=== PATIENT | female | born 1955 | race Caucasian/White ===

== ENCOUNTER 2020-05-28 09:32 | Outpatient (REF) | payer OTHER, SELFPAY ==
[2020-05-28 11:55] LABS: Alanine Aminotransferase 13 U/L (0-31); Albumin Level 4.5 g/dL (3.5-5.0); Alkaline Phosphatase 55 U/L (39-117); Anion Gap 13 (12-20); Aspartate Amino Transferase 12 U/L (5-31); Bilirubin Total 0.5 mg/dL (0.0-1.0); Blood Urea Nitrogen 12 mg/dL (9-16); Carbon Dioxide 26 mmol/L (22-29); Chloride 105 mmol/L (96-108); Cholesterol 185 mg/dL; Estimated Glomerular Filt Rate > 60; Glucose Fasting 135 mg/dL (60-99); HDL Cholesterol 48 mg/dL; LDL Cholesterol Calculated 105 mg/dl; Potassium 4.5 mmol/l (3.3-5.1); Sodium 139 mmol/L (135-145); Total Protein 7.2 g/dL (6.5-8.0); Triglycerides 160 mg/dL
[2020-05-28 12:03] LABS: Estimated Average Glucose 146 mg/dL; Hemoglobin A1c % 6.7 %
[2020-05-28 12:30] LABS: Creatinine Urine 91.64 mg/dL; Microalbum/Creatinine Ratio Ur 7.6 ug/mg cr
== END 2020-05-28 09:33 | disposition home or self-care (01) ==
LOC: HO.HMGCLDS 09:32
PROVIDERS: PCP Internal Medicine; Visit Provider Internal Medicine
DX: E78.5 Hyperlipidemia, unspecified (principal); I10 Essential (primary) hypertension
CPT/HCPCS: 80053; 80061; 82043; 83036

== ENCOUNTER 2020-12-14 08:09 | Outpatient (REF) | payer OTHER, SELFPAY ==
[2020-12-14 11:24] LABS: MANUAL DIFF FLAG NO
[2020-12-14 11:41] LABS: Basophils Absolute Auto 0.1 X10*3/uL (0.0-0.2); Basophils Percent Auto 1.2 % (0-2); Eosinophils Absolute Auto 0.1 X10*3/uL (0.0-0.4); Eosinophils Percent Auto 2.2 % (0-4); Hematocrit 39.4 % (37-47); Hemoglobin 12.8 g/dl (12.0-16.0); Imm Gran Abs Auto 0.01 X10*3/uL (0.00-0.03); Imm Gran Pct Auto 0.2 % (0.0-0.4); Lymphocytes Absolute Auto 1.8 X10*3/uL (1.2-4.9); Lymphocytes Percent Auto 36.1 % (20-40); Mean Corpuscular HGB Conc 32.5 g/dl (31.0-35.0); Mean Corpuscular Hemoglobin 28.8 pg (27.0-33.0); Mean Corpuscular Volume 88.5 fL (80-98); Mean Platelet Volume 11.4 fL (9.4-12.3); Monocytes Absolute Auto 0.4 X10*3/uL (0.1-1.2); Monocytes Percent Auto 7.8 % (2-11); Neutrophils Absolute Auto 2.6 X10*3/uL (2.0-8.3); Neutrophils Percent Auto 52.5 % (45-73); Platelet Count 293 X10*3/uL (160-400); Red Blood Count 4.45 X10*6/uL (4.20-5.50); Red Cell Distribution Width 12.5 % (11.0-16.0)
[2020-12-14 11:48] LABS: Alanine Aminotransferase 18 U/L (0-31); Albumin Level 4.5 g/dL (3.5-5.0); Alkaline Phosphatase 61 U/L (39-117); Anion Gap 16 (12-20); Aspartate Amino Transferase 13 U/L (5-31); Bilirubin Total 0.5 mg/dL (0.0-1.0); Blood Urea Nitrogen 16 mg/dL (9-16); Calcium 9.5 mg/dL (8.4-10.2); Carbon Dioxide 21 mmol/L (22-29); Chloride 105 mmol/L (96-108); Cholesterol 191 mg/dL; Estimated Glomerular Filt Rate > 60; Glucose Fasting 150 mg/dL (60-99); HDL Cholesterol 47 mg/dL; LDL Cholesterol Calculated 118 mg/dl; Potassium 4.3 mmol/L (3.3-5.1); Sodium 138 mmol/L (135-145); Total Protein 7.1 g/dL (6.5-8.0); Triglycerides 133 mg/dL
[2020-12-14 12:00] LABS: Creatinine Urine 76.06 mg/dL; Microalbumin Urine < 5.0 mg/L
[2020-12-14 12:00] LABS: Estimated Average Glucose 143 mg/dL; Hemoglobin A1c % 6.6 %
== END 2020-12-14 08:10 | disposition home or self-care (01) ==
LOC: HO.HMGCLDS 08:09
PROVIDERS: PCP Internal Medicine; Visit Provider Internal Medicine
DX: I10 Essential (primary) hypertension (principal); E11.9 Type 2 diabetes mellitus without complications; E78.5 Hyperlipidemia, unspecified; Z79.4 Long term (current) use of insulin
CPT/HCPCS: 36415; 80053; 80061; 82043; 83036; 85025

== ENCOUNTER 2021-03-22 09:05 | Outpatient (REF) | payer OTHER, SELFPAY ==
[2021-03-22 11:29] LABS: MANUAL DIFF FLAG NO
[2021-03-22 11:37] LABS: Basophils Percent Auto 0.6 % (0-2); Eosinophils Absolute Auto 0.1 X10*3/uL (0.0-0.4); Eosinophils Percent Auto 2.3 % (0-4); Hematocrit 37.3 % (37-47); Hemoglobin 12.1 g/dl (12.0-16.0); Imm Gran Abs Auto 0.03 X10*3/uL (0.00-0.03); Imm Gran Pct Auto 0.5 % (0.0-0.4); Lymphocytes Absolute Auto 1.9 X10*3/uL (1.2-4.9); Lymphocytes Percent Auto 30.1 % (20-40); Mean Corpuscular HGB Conc 32.4 g/dl (31.0-35.0); Mean Corpuscular Hemoglobin 28.8 pg (27.0-33.0); Mean Corpuscular Volume 88.8 fL (80-98); Monocytes Absolute Auto 0.5 X10*3/uL (0.1-1.2); Monocytes Percent Auto 7.2 % (2-11); Neutrophils Absolute Auto 3.7 X10*3/uL (2.0-8.3); Neutrophils Percent Auto 59.3 % (45-73); Platelet Count 245 X10*3/uL (160-400); Red Cell Distribution Width 12.7 % (11.0-16.0); White Blood Count 6.2 X10*3/uL (4.8-10.8)
[2021-03-22 11:45] LABS: Estimated Average Glucose 151 mg/dL; Hemoglobin A1c % 6.9 %
[2021-03-22 11:50] LABS: Creatinine Urine 99.61 mg/dL
[2021-03-22 11:51] LABS: Alanine Aminotransferase 28 U/L (0-31); Albumin Level 4.3 g/dL (3.5-5.0); Alkaline Phosphatase 67 U/L (39-117); Anion Gap 14 (12-20); Aspartate Amino Transferase 21 U/L (5-31); Bilirubin Total 0.4 mg/dL (0.0-1.0); Blood Urea Nitrogen 16 mg/dL (9-16); Calcium 9.2 mg/dL (8.4-10.2); Carbon Dioxide 24 mmol/L (22-29); Chloride 107 mmol/L (96-108); Cholesterol 198 mg/dL; Estimated Glomerular Filt Rate > 60; Glucose Fasting 167 mg/dL (60-99); HDL Cholesterol 50 mg/dL; LDL Cholesterol Calculated 119 mg/dl; Potassium 4.2 mmol/L (3.3-5.1); Sodium 141 mmol/L (135-145); Triglycerides 146 mg/dL
== END 2021-03-22 09:06 | disposition home or self-care (01) ==
LOC: HO.HMGCLDS 09:05
PROVIDERS: PCP Internal Medicine; Visit Provider Internal Medicine
DX: I10 Essential (primary) hypertension (principal); E78.5 Hyperlipidemia, unspecified
CPT/HCPCS: 36415; 80053; 80061; 82043; 83036; 85025

== ENCOUNTER 2021-06-15 12:55 | Outpatient (REF) | payer MEDICARE, SELFPAY ==
--- NOTE | ~2021-06-15 | XR_ITS ---
EXAMINATION: XR KNEE, BILATERAL CLINICAL INFORMATION: Knee pain. COMPARISON: Radiographs contralateral left knee 05/11/2017. TECHNIQUE: Each knee is imaged in standing AP and lateral views. There are 2 views of each side, a total of 4 views. FINDINGS: Right: Tricompartment osteoarthritis present, greatest medial knee joint compartment with joint narrowing and secondary genu varus. No erosive change or chondrocalcinosis. There is moderate suprapatellar effusion. Hoffa's fat pad appears normal. Bony mineralization is normal. No destructive process or periostitis. Left: Tricompartment osteoarthritis present, greatest medial knee joint compartment, similar to prior imaging 2017 with borderline secondary genu varus. There is no erosive change or chondrocalcinosis. Small suprapatellar effusion present. Hoffa's fat pad appears normal. Bony mineralization normal. No destructive process or periostitis. XR/XR knee standing BI IMPRESSION: 1. Bilateral tricompartment osteoarthritis, greatest medial compartments. 2. Moderate right effusion, small to moderate left effusion.
== END 2021-06-15 12:56 | disposition home or self-care (01) ==
LOC: HO.HMGCX 12:55
PROVIDERS: Visit Provider Internal Medicine
DX: M25.561 Pain in right knee (principal); M25.562 Pain in left knee
CPT/HCPCS: 73565

== ENCOUNTER 2021-08-02 09:24 | Outpatient (REF) | payer MEDICARE, SELFPAY ==
[2021-08-02 11:31] LABS: Estimated Average Glucose 143 mg/dL; Hemoglobin A1c % 6.6 %
[2021-08-02 11:42] LABS: Alanine Aminotransferase 17 U/L (0-31); Albumin Level 4.4 g/dL (3.5-5.0); Alkaline Phosphatase 69 U/L (39-117); Anion Gap 14 (12-20); Aspartate Amino Transferase 14 U/L (5-31); Bilirubin Total 0.4 mg/dL (0.0-1.0); Blood Urea Nitrogen 14 mg/dL (9-16); Calcium 9.7 mg/dL (8.4-10.2); Carbon Dioxide 28 mmol/L (22-29); Chloride 104 mmol/L (96-108); Cholesterol 207 mg/dL; Estimated Glomerular Filt Rate > 60; Glucose Fasting 154 mg/dL (60-99); HDL Cholesterol 50 mg/dL; LDL Cholesterol Calculated 137 mg/dl; Potassium 4.7 mmol/L (3.3-5.1); Sodium 141 mmol/L (135-145); Total Protein 7.3 g/dL (6.5-8.0); Triglycerides 100 mg/dL
== END 2021-08-02 09:25 | disposition home or self-care (01) ==
LOC: HO.HMGCLDS 09:24
PROVIDERS: Visit Provider Internal Medicine
DX: E78.5 Hyperlipidemia, unspecified (principal); I10 Essential (primary) hypertension; E11.9 Type 2 diabetes mellitus without complications; Z79.4 Long term (current) use of insulin
CPT/HCPCS: 36415; 80053; 80061; 83036

== ENCOUNTER 2021-12-20 08:52 | Outpatient (REF) | payer MEDICARE, SELFPAY | END 2021-12-20 08:53 | disposition home or self-care (01) | LOC: HO.HMGCLDS 08:52 | PROVIDERS: Absent Provider Orthopaedic Surgery; PCP Internal Medicine; Visit Provider Internal Medicine | DX: Z13.89 Encounter for screening for other disorder (principal) ==

== ENCOUNTER 2022-06-27 08:32 | Outpatient (REF) | payer OTHER, SELFPAY ==
[2022-06-27 11:12] LABS: MANUAL DIFF FLAG NO
[2022-06-27 11:20] LABS: Basophils Absolute Auto 0.1 X10*3/uL (0.0-0.2); Basophils Percent Auto 0.9 % (0-2); Eosinophils Absolute Auto 0.1 X10*3/uL (0.0-0.4); Eosinophils Percent Auto 2.6 % (0-4); Hemoglobin 12.8 g/dl (12.0-16.0); Imm Gran Abs Auto 0.01 X10*3/uL (0.00-0.03); Imm Gran Pct Auto 0.2 % (0.0-0.4); Mean Corpuscular HGB Conc 32.8 g/dl (31.0-35.0); Mean Corpuscular Hemoglobin 28.1 pg (27.0-33.0); Mean Corpuscular Volume 85.5 fL (80.0-98.0); Mean Platelet Volume 11.7 fL (9.4-12.3); Monocytes Absolute Auto 0.5 X10*3/uL (0.1-1.2); Monocytes Percent Auto 8.7 % (2-11); Neutrophils Absolute Auto 2.8 x10*3/uL (2.0-8.3); Neutrophils Percent Auto 51.6 % (45-73); Platelet Count 281 X10*3/uL (160-400); Red Blood Count 4.56 X10*6/uL (4.20-5.50); Red Cell Distribution Width 13.1 % (11.0-16.0); White Blood Count 5.4 X10*3/uL (4.8-10.8)
[2022-06-27 11:52] LABS: Alanine Aminotransferase 14 U/L (0-31); Albumin Level 4.3 g/dL (3.5-5.0); Alkaline Phosphatase 76 U/L (39-117); Anion Gap 13 (12-20); Aspartate Amino Transferase 12 U/L (5-31); Bilirubin Total 0.7 mg/dL (0.0-1.0); Blood Urea Nitrogen 22 mg/dL (9-16); Calcium 9.2 mg/dL (8.4-10.2); Carbon Dioxide 24 mmol/L (22-29); Chloride 106 mmol/L (96-108); Cholesterol 174 mg/dL; Estimated Glomerular Filt Rate > 60; Glucose Fasting 154 mg/dL (60-99); HDL Cholesterol 44 mg/dL; LDL Cholesterol Calculated 109 mg/dl; Potassium 3.5 mmol/L (3.3-5.1); Sodium 139 mmol/L (135-145); Triglycerides 107 mg/dL
[2022-06-27 11:56] LABS: Creatinine Urine 272.01 mg/dL; Microalbum/Creatinine Ratio Ur 7.3 ug/mg cr
[2022-06-27 11:59] LABS: Estimated Average Glucose 148 mg/dL; Hemoglobin A1c % 6.8 %
== END 2022-06-27 08:33 | disposition home or self-care (01) ==
LOC: HO.HMGCLDS 08:32
PROVIDERS: PCP Internal Medicine; Visit Provider Internal Medicine
DX: I10 Essential (primary) hypertension (principal); E78.5 Hyperlipidemia, unspecified
CPT/HCPCS: 36415; 80053; 80061; 82043; 83036; 85025

== ENCOUNTER 2023-01-23 09:02 | Outpatient (AMB) | payer OTHER, SELFPAY ==
--- NOTE | 2023-01-23 09:06 | MHC.PC.OV ---
Vital Signs 01/23/23 09:12 Height 5 ft Weight 183 lb BMI 35.7 BP 110/64 Blood Pressure Location Rt brachial Position Sitting Pulse 86 Pulse Source Pulse Oximeter Pulse Oximetry (%) 100 Oxygen Delivery Method Room Air Intake Visit Reasons: discharge from knee surgery Intake Note: Pt is here today for a Hospital follow up after R knee surgery. Allergies No Known Drug Allergies Allergy (Unknown, Verified 01/23/23 09:14) Unknown dust Allergy (Unknown, Uncoded 01/23/23 09:14) Unknown Medication List - Last Reconciled 01/23/23 by Shannon Goins MD blood sugar diagnostic As directed blood sugar diagnostic ([employer] Verio test strips) check glucose once a day blood-glucose meter ([employer] Verio Flex Start kit) 1 QD carvedilol 6.25 mg PO BID COVID-19 antigen test As directed dulaglutide 1.5 mg (0.5 mL) subcut QWEEK insulin glargine (Lantus Solostar U-100 Insulin) 40 units (0.4 mL) subcut DAILY irbesartan-hydrochlorothiazide 300-12.5 mg 1 tab PO DAILY lancets ([employer] UltraSoft Lancets) 1 qd lidocaine 5% 1 patch topical DAILY metformin 1,000 mg PO BID miscellaneous medical supply 1 ea miscellaneous .QD omeprazole 40 mg PO DAILY pen needle, diabetic bid pravastatin 20 mg PO DAILY Tobacco use date assessed: 01/23/23 Fall risk assessment: No Falls in past year Last assessed Fall Risk: 01/23/23 Dental Screening Dental Screen Date: 01/23/23 Did you have a dental visit in the last 12 months?: Yes Did you have a dental problem in the last 6 months where you did not have access to dental care?: No Was dental information given to patient?: Patient has dentist HPI discharge from knee surgery HPI Details Pt patient presents for the follow-up of R knee replacement surgery by Dr. Castaneda 3 weeks ago. Patient developed a rash around incision site and was diagnosed with allergic reaction to adhesive. The incision is healing well and was checked by a surgeon last week but patient complains of generalized itching and insomnia for the last 2 weeks. She denies any body rash. Type 2 diabetes hypertension hyperlipidemia are controlled on current medications. Patient lost 20 lb since started Trulicity. [facility] Medical History Abdominal pain Bilateral knee pain Chest pain Diabetic eye exam History of mammogram HTN (hypertension) Hyperlipidemia IDDM (insulin dependent diabetes mellitus) Lower back pain Obesity JACKLYN (obstructive sleep apnea) Surgical History H/O colonoscopy No pertinent past surgical history Family History Father No problems noted. Mother No problems noted. Social History Housing: House Alcohol intake: never Patient Tobacco Use Status: Never used Tobacco e-Cigarette/Vaping Use: Never Used Second Hand Smoke Exposure: No service: No Current occupational status: other Cognitive needs: No Hearing needs: No Vision needs: No Questionnaire PHQ-9 Over the last 2 weeks, how often have you been bothered by any of the following problems? 1. Little interest or pleasure in doing things: not at all 2. Feeling down, depressed, or hopeless: not at all 3. Trouble falling or staying asleep, or sleeping too much: not at all 4. Feeling tired or having little energy: not at all 5. Poor appetite or overeating: not at all 6. Feeling bad about yourself - or that you are a failure or have let yourself or your family down: not at all 7. Trouble concentrating on things, such as reading the newspaper or watching television: not at all 8. Moving or speaking so slowly that other people could have noticed. Or the opposite - being so fidgety or restless that you have been moving around a lot more than usual: not at all 9. Thoughts that you would be better off or of hurting yourself in some way: not at all Total score: 0 Depression Screening Interpretation: Negative Source: Developed by Drs. Giles Camara, Yesica Rocha, Leeroy Keith and colleagues, with an educational felicitas from [employer]. Thrive Questionnaire Date Thrive assessed: 01/23/23 I am a: Patient What is your living situation today?: I have a steady place to live Within the past 12 months, did the food you bought not last and you didn't have the money to get more?: Never true Within the past 12 months, did you worry whether your food would run out before you got money to buy more?: Never true Do you have trouble paying for medicines?: No Do you have trouble getting transportation to medical appointments?: No Do you have trouble paying your heating and electricity bill?: No Do you have trouble taking care of your child, family member or friend?: No Do you have trouble with day-to-day activities such as bathing, preparing meals, shopping, managing finances, etc.?: No Are you currently unemployed and looking for a job?: No Are you interested in more education?: No Please select the resources that you would like help with: None Currently or been in a relationship where the following occur: no concerns reported AUDIT C Alcohol Use Questionnaire (AUDIT-C) 1. How often do you have a drink containing alcohol?: Never 3. How often do you have six or more drinks on one occasion?: Never Total Score: 0 APARNA-7 AMB Questionnaire APARNA-7 Date APARNA - 7 assessed: 01/23/23 Feeling nervous, anxious, or on edge: 0 = Not at all Not being able to stop or control worryin = Not at all Worrying too much about different things: 0 = Not at all Trouble relaxin = Not at all Being so restless that it is hard to sit still: 0 = Not at all Becoming easily annoyed or irritable: 0 = Not at all Feeling afraid as if something awful might happen: 0 = Not at all Total APARNA-7 score (0-4 normal; 5-9 mild; 10-14 moderate; 15-21 severe): 0 Source: Developed by Drs. Giles Camara, Yesica Rocha, Leeroy Keith and colleagues, with an educational felicitas from [employer]. Review of Systems Const All systems reviewed & are unremarkable except as noted in HPI and below Reports no additional complaints Eyes Reports no additional complaints ENT Reports no additional complaints Card Reports no additional complaints Resp Reports no additional complaints GI Reports no additional complaints Physical exam (Primary Care) Vital Signs: Last Vital Signs Pulse 86 01/23/23 09:12 BP 110/64 01/23/23 09:12 Pulse Ox 100 01/23/23 09:12 Oxygen Delivery Method Room Air 01/23/23 09:12 BMI result Body Mass Index 35.7 Tobacco/Smoking Status: Tobacco use Status Tobacco use date assessed 01/23/23 01/23/23 09:21 Patient Tobacco Use Status Never used Tobacco 01/23/23 09:21 e-Cigarette/Vaping Use Never Used 01/23/23 09:06 PHQ-9: PHQ-9 Score PHQ-9: Total score 0 01/23/23 09:21 Depression Screening Interpretation: Negative Thrive Assessment: Date of Thrive Assessment Date Thrive assessed 01/23/23 01/23/23 09:21 Currently or been in a relationship where the following occur: no concerns reported Const General: no acute distress HENMT Head: Yes normal to inspection Ears: hearing grossly normal bilaterally Throat: Yes posterior oropharynx normal Neck Neck: Yes supple Resp Effort & Inspection: normal respiratory effort Auscultation: clear to auscultation bilaterally Cardio Rhythm: regular rhythm Heart sounds: S1 normal heart sound present and S2 normal heart sound present GI Inspection: Yes normal to inspection Palpation (GI): Soft to palpation Skin General skin exam: no rashes or lesions noted Extrem Other: Right knee incision site with dry scab no erythema warmth or tenderness, Assessment and Plan Assessment & Plan (1) HTN (hypertension): Comment: BP goal <130/80 Code(s): I10 - Essential (primary) hypertension Plan: Continue medications (2) IDDM (insulin dependent diabetes mellitus): Comment: A1C < 8 Plan: Continue medications (3) Hyperlipidemia: Code(s): E78.5 - Hyperlipidemia, unspecified Plan: Continue statin (4) Allergic reaction: Comment: to adhesive Code(s): T78.40XA - Allergy, unspecified, initial encounter Plan: Hydroxyzine 10-20 mg q.h.s. for 1 week is prescribed Orders: Orders Comprehensive Met. Panel Today E78.5 - Hyperlipidemia, unspecified, I10 - Essential (primary) hypertension Hemoglobin A1c Today E78.5 - Hyperlipidemia, unspecified, I10 - Essential (primary) hypertension Complete Blood Count Auto Diff Today E78.5 - Hyperlipidemia, unspecified, I10 - Essential (primary) hypertension Medications: New blood sugar diagnostic ([employer] Verio test strips) check glucose twice a day 200 ea 3RF hydroxyzine HCl 10 -20 mg orally bedtime; 60 tabs 0RF hydroxyzine HCl 10 -20 mg orally bedtime; 60 tabs 0RF omeprazole 40 mg (2 x 20 mg) PO DAILY 180 caps 1RF blood sugar diagnostic ([employer] Verio test strips) check glucose twice a day 200 ea 3RF Coding Level of Care Code Est Pt Level 4 (98180) Diagnoses HTN (hypertension) I10 IDDM (insulin dependent diabetes mellitus) Hyperlipidemia E78.5 Allergic reaction T78.40XA
[2023-01-23 09:12] VITALS: BP 110/64; PULSE 86; O2SAT 100; BMI 35.7
== END 2023-01-23 10:42 | disposition home or self-care (01) ==
PROVIDERS: PCP Internal Medicine; Visit Provider Internal Medicine
DX: I10 Essential (primary) hypertension (principal); E78.5 Hyperlipidemia, unspecified; T78.40XA Allergy, unspecified, initial encounter
CPT/HCPCS: 99214

== ENCOUNTER 2023-01-23 09:58 | Outpatient (REF) | payer OTHER, SELFPAY ==
[2023-01-23 13:17] LABS: MANUAL DIFF FLAG NO
[2023-01-23 13:36] LABS: Basophils Absolute Auto 0.1 X10*3/uL (0.0-0.2); Basophils Percent Auto 1.5 % (0-2); Eosinophils Absolute Auto 0.5 X10*3/uL (0.0-0.4); Eosinophils Percent Auto 9.1 % (0-4); Hematocrit 40.9 % (37.0-47.0); Imm Gran Abs Auto 0.01 X10*3/uL (0.00-0.03); Imm Gran Pct Auto 0.2 % (0.0-0.4); Lymphocytes Absolute Auto 1.8 X10*3/uL (1.2-4.9); Lymphocytes Percent Auto 34.1 % (20-40); Mean Corpuscular HGB Conc 31.8 g/dl (31.0-35.0); Mean Corpuscular Hemoglobin 28.1 pg (27.0-33.0); Mean Corpuscular Volume 88.5 fL (80.0-98.0); Mean Platelet Volume 11.1 fL (9.4-12.3); Monocytes Absolute Auto 0.4 X10*3/uL (0.1-1.2); Monocytes Percent Auto 7.5 % (2-11); Neutrophils Absolute Auto 2.5 x10*3/uL (2.0-8.3); Neutrophils Percent Auto 47.6 % (45-73); Platelet Count 402 X10*3/uL (160-400); Red Blood Count 4.62 X10*6/uL (4.20-5.50); Red Cell Distribution Width 13.2 % (11.0-16.0); White Blood Count 5.2 X10*3/uL (4.8-10.8)
[2023-01-23 14:01] LABS: Alanine Aminotransferase 12 U/L (0-31); Albumin Level 4.4 g/dL (3.5-5.0); Alkaline Phosphatase 101 U/L (39-117); Anion Gap 17 (12-20); Aspartate Amino Transferase 16 U/L (5-31); Bilirubin Total 0.6 mg/dL (0.0-1.0); Blood Urea Nitrogen 8 mg/dL (9-16); Calcium 9.9 mg/dL (8.4-10.2); Carbon Dioxide 22 mmol/L (22-29); Chloride 102 mmol/L (96-108); Estimated Glomerular Filt Rate > 60; Glucose Random 132 mg/dL (60-115); Potassium 3.8 mmol/L (3.3-5.1); Sodium 137 mmol/L (135-145); Total Protein 7.8 g/dL (6.5-8.0)
[2023-01-23 14:07] LABS: Estimated Average Glucose 120 mg/dL; Hemoglobin A1c % 5.8 %
== END 2023-01-23 09:59 | disposition home or self-care (01) ==
LOC: HO.HMGCLDS 09:58
PROVIDERS: PCP Internal Medicine; Visit Provider Internal Medicine
DX: I10 Essential (primary) hypertension (principal); E78.5 Hyperlipidemia, unspecified; E11.9 Type 2 diabetes mellitus without complications; Z79.4 Long term (current) use of insulin
CPT/HCPCS: 36415; 80053; 83036; 85025

== ENCOUNTER 2023-03-28 08:53 | Outpatient (REF) | payer MEDICARE, SELFPAY ==
[2023-03-28 11:24] LABS: MANUAL DIFF FLAG NO
[2023-03-28 11:27] LABS: Basophils Absolute Auto 0.1 X10*3/uL (0.0-0.2); Basophils Percent Auto 0.9 % (0-2); Eosinophils Absolute Auto 0.2 X10*3/uL (0.0-0.4); Hematocrit 39.9 % (37.0-47.0); Imm Gran Abs Auto 0.01 X10*3/uL (0.00-0.03); Imm Gran Pct Auto 0.2 % (0.0-0.4); Lymphocytes Absolute Auto 1.5 X10*3/uL (1.2-4.9); Lymphocytes Percent Auto 27.6 % (20-40); Mean Corpuscular HGB Conc 32.6 g/dl (31.0-35.0); Mean Corpuscular Hemoglobin 28.3 pg (27.0-33.0); Mean Corpuscular Volume 86.9 fL (80.0-98.0); Mean Platelet Volume 11.1 fL (9.4-12.3); Monocytes Absolute Auto 0.4 X10*3/uL (0.1-1.2); Monocytes Percent Auto 7.9 % (2-11); Neutrophils Absolute Auto 3.2 x10*3/uL (2.0-8.3); Neutrophils Percent Auto 60.4 % (45-73); Platelet Count 288 X10*3/uL (160-400); Red Blood Count 4.59 X10*6/uL (4.20-5.50); Red Cell Distribution Width 13.2 % (11.0-16.0); White Blood Count 5.3 X10*3/uL (4.8-10.8)
[2023-03-28 11:49] LABS: Creatinine Urine 156.41 mg/dL; Microalbum/Creatinine Ratio Ur 5.1 ug/mg cr (<30)
[2023-03-28 11:53] LABS: Alanine Aminotransferase 9 U/L (0-31); Albumin Level 4.3 g/dL (3.5-5.0); Alkaline Phosphatase 69 U/L (39-117); Anion Gap 14 (12-20); Aspartate Amino Transferase 13 U/L (5-31); Bilirubin Total 0.4 mg/dL (0.0-1.0); Blood Urea Nitrogen 13 mg/dL (9-16); Calcium 10.1 mg/dL (8.4-10.2); Carbon Dioxide 27 mmol/L (22-29); Chloride 104 mmol/L (96-108); Cholesterol 196 mg/dL (<200); Estimated Glomerular Filt Rate > 60; Glucose Fasting 125 mg/dL (60-99); HDL Cholesterol 47 mg/dL (>40); LDL Cholesterol Calculated 124 mg/dL (<100); Potassium 4.2 mmol/L (3.3-5.1); Sodium 141 mmol/L (135-145); Total Protein 7.5 g/dL (6.5-8.0); Triglycerides 126 mg/dL (<150)
[2023-03-28 11:56] LABS: Estimated Average Glucose 131 mg/dL; Hemoglobin A1c % 6.2 % (<6.0)
== END 2023-03-28 08:54 | disposition home or self-care (01) ==
LOC: HO.HMGCLDS 08:53
PROVIDERS: PCP Internal Medicine; Visit Provider Internal Medicine
DX: I10 Essential (primary) hypertension (principal); E78.5 Hyperlipidemia, unspecified
CPT/HCPCS: 36415; 80053; 80061; 82043; 82570; 83036; 85025

== ENCOUNTER 2023-04-03 11:52 | Outpatient (AMB) | payer OTHER, SELFPAY ==
--- NOTE | 2023-04-03 11:55 | MHC.PC.OV ---
Vital Signs 04/03/23 11:56 Height 5 ft Weight 184 lb BMI 35.9 BP 112/64 Blood Pressure Location Rt brachial Position Sitting Pulse 75 Pulse Source Pulse Oximeter Pulse Oximetry (%) 97 Oxygen Delivery Method Room Air Intake Visit Reasons: Annual Physical Intake Note: Pt is here today for PE. Allergies No Known Drug Allergies Allergy (Unknown, Verified 04/03/23 12:00) Unknown dust Allergy (Unknown, Uncoded 04/03/23 12:00) Unknown Medication List - Last Reconciled 04/03/23 by Shannon Goins MD blood sugar diagnostic As directed blood sugar diagnostic ([employer] Verio test strips) check glucose twice a day blood-glucose meter ([employer] Verio Flex Start kit) 1 QD carvedilol 6.25 mg PO BID COVID-19 antigen test As directed dulaglutide 1.5 mg (0.5 mL) subcut QWEEK hydroxyzine HCl 10 -20 mg orally bedtime; insulin glargine (Lantus Solostar U-100 Insulin) 40 units (0.4 mL) subcut DAILY irbesartan-hydrochlorothiazide 300-12.5 mg 1 tab PO DAILY lancets ([employer] UltraSoft Lancets) 1 qd lidocaine 5% 1 patch topical DAILY metformin 1,000 mg PO BID miscellaneous medical supply 1 ea miscellaneous .QD omeprazole 40 mg PO BID pen needle, diabetic bid pravastatin 20 mg PO DAILY pravastatin 20 mg PO DAILY Tobacco use date assessed: 01/23/23 Fall risk assessment: No Falls in past year Last assessed Fall Risk: 04/03/23 Dental Screening Dental Screen Date: 04/03/23 Did you have a dental visit in the last 12 months?: Yes Did you have a dental problem in the last 6 months where you did not have access to dental care?: No Was dental information given to patient?: Patient has dentist HPI Annual Physical HPI Details Pt presents for PE. Pt c/o insomnia, but denies depression or anxiety. Patient complains of persistent heartburn despite taking 40 mg of omeprazole. She would like to see medicaid business analyst to have repeat endoscopy for history of chronic esophagitis. Patient denies dysphagia odynophagia hematochezia melena. [facility] Medical History Bilateral knee pain Lower back pain Abdominal pain Chest pain Hyperlipidemia History of mammogram Diabetic eye exam JACKLYN (obstructive sleep apnea) Obesity HTN (hypertension) IDDM (insulin dependent diabetes mellitus) Surgical History H/O colonoscopy No pertinent past surgical history Family History Father No problems noted. Mother No problems noted. Social History Housing: House Alcohol intake: never Patient Tobacco Use Status: Never used Tobacco e-Cigarette/Vaping Use: Never Used Second Hand Smoke Exposure: No service: No Current occupational status: other Cognitive needs: No Hearing needs: No Vision needs: No Questionnaire Thrive Questionnaire Date Thrive assessed: 01/23/23 APARNA-7 AMB Questionnaire APARNA-7 Date APARNA - 7 assessed: 01/23/23 Source: Developed by Drs. Giles Camara, Yesica Rocha, Leeroy Keith and colleagues, with an educational felicitas from [employer]. Review of Systems Const All systems reviewed & are unremarkable except as noted in HPI and below Reports no additional complaints Eyes Reports no additional complaints ENT Reports no additional complaints Card Reports no additional complaints Resp Reports no additional complaints GI Reports no additional complaints Reports no additional complaints Physical exam (Primary Care) Vital Signs: Last Vital Signs Pulse 75 04/03/23 11:56 BP 112/64 04/03/23 11:56 Pulse Ox 97 04/03/23 11:56 Oxygen Delivery Method Room Air 04/03/23 11:56 BMI result Body Mass Index 35.9 Tobacco/Smoking Status: Tobacco use Status Tobacco use date assessed 01/23/23 04/03/23 11:56 Patient Tobacco Use Status Never used Tobacco 04/03/23 11:56 e-Cigarette/Vaping Use Never Used 04/03/23 11:56 Thrive Assessment: Date of Thrive Assessment Date Thrive assessed 01/23/23 04/03/23 11:56 Const General: no acute distress Nutritional Appearance: average body habitus HENMT Head: Yes normal to inspection Ears: hearing grossly normal bilaterally General nose exam: Normal external nose present Face and sinus: Yes normal facial exam Throat: Yes posterior oropharynx normal Eyes General: appearance normal, both eyes and all related structures Resp Effort & Inspection: normal respiratory effort Auscultation: clear to auscultation bilaterally Cardio Rhythm: regular rhythm Heart sounds: S1 normal heart sound present and S2 normal heart sound present GI Inspection: Yes normal to inspection Palpation (GI): Soft to palpation Percussion: Yes normal to percussion Auscultation: normal bowel sounds Extrem General: Yes no clubbing, cyanosis or edema Assessment and Plan Assessment & Plan (1) GERD (gastroesophageal reflux disease): Code(s): K21.9 - Gastro-esophageal reflux disease without esophagitis Plan: Increase omeprazole to 40 mg twice a day and patient will be referred to medicaid business analyst Dr. Avelar for evaluation (2) IDDM (insulin dependent diabetes mellitus): Comment: A1C < 8 Plan: A1c is 6.4, continue current medications ADA diet regular exercise (3) HTN (hypertension): Comment: BP goal <130/80 Code(s): I10 - Essential (primary) hypertension Plan: Continue current medications (4) Hyperlipidemia: Code(s): E78.5 - Hyperlipidemia, unspecified Plan: Restart pravastatin. Follow-up in 6 months with a fasting labs before (5) History of total knee arthroplasty: Comment: Left 01/17, right 2022 Code(s): Z96.659 - Presence of unspecified artificial knee joint (6) Annual physical exam: Code(s): Z00.00 - Encounter for general adult medical examination without abnormal findings Plan: Well-balanced diet regular exercise discussed with the patient. She is up-to-date with mammogram colonoscopy and diabetic eye exam. Patient will return in 6 months Orders: Orders Comprehensive [place]. Panel Fast 6 Months E78.5 - Hyperlipidemia, unspecified, I10 - Essential (primary) hypertension, K21.9 - Gastro-esophageal reflux disease without esophagitis Complete Blood Count Auto Diff 6 Months E78.5 - Hyperlipidemia, unspecified, I10 - Essential (primary) hypertension, K21.9 - Gastro-esophageal reflux disease without esophagitis Lipid Panel 6 Months E78.5 - Hyperlipidemia, unspecified, I10 - Essential (primary) hypertension, K21.9 - Gastro-esophageal reflux disease without esophagitis Microalbumin, Random (w Creat) 6 Months E78.5 - Hyperlipidemia, unspecified, I10 - Essential (primary) hypertension, K21.9 - Gastro-esophageal reflux disease without esophagitis Hemoglobin A1c 6 Months E78.5 - Hyperlipidemia, unspecified, I10 - Essential (primary) hypertension, K21.9 - Gastro-esophageal reflux disease without esophagitis Referrals Gastroenterology Referral K21.9 - Gastro-esophageal reflux disease without esophagitis Medications: New pravastatin 20 mg PO DAILY 90 tabs 1RF omeprazole 40 mg PO BID 180 caps 1RF Discontinued pravastatin Discontinued Reason: Doctor's Order 20 mg PO DAILY 90 tabs 3RF omeprazole Discontinued Reason: Doctor's Order 40 mg (2 x 20 mg) PO DAILY 180 caps 1RF Coding Level of Care Code Est Pt Prev Care >65y(95566) Diagnoses GERD (gastroesophageal reflux disease) K21.9 IDDM (insulin dependent diabetes mellitus) HTN (hypertension) I10 Hyperlipidemia E78.5 History of total knee arthroplasty Z96.659 Annual physical exam Z00.00
[2023-04-03 11:56] VITALS: BP 112/64; PULSE 75; O2SAT 97; BMI 35.9
== END 2023-04-03 13:02 | disposition home or self-care (01) ==
PROVIDERS: PCP Internal Medicine; Visit Provider Internal Medicine
DX: K21.9 Gastro-esophageal reflux disease without esophagitis (principal); I10 Essential (primary) hypertension; E78.5 Hyperlipidemia, unspecified; Z96.659 Presence of unspecified artificial knee joint; Z00.00 Encounter for general adult medical examination without abnormal findings
CPT/HCPCS: 99397

== ENCOUNTER 2023-10-17 08:05 | Outpatient (REF) | payer MEDICARE, SELFPAY ==
[2023-10-17 11:57] LABS: MANUAL DIFF FLAG NO
[2023-10-17 12:01] LABS: Basophils Absolute Auto 0.1 X10*3/uL (0.0-0.2); Basophils Percent Auto 1.1 % (0-2); Eosinophils Absolute Auto 0.1 X10*3/uL (0.0-0.4); Eosinophils Percent Auto 2.5 % (0-4); Hematocrit 38.4 % (37.0-47.0); Hemoglobin 12.3 g/dl (12.0-16.0); Imm Gran Abs Auto 0.01 X10*3/uL (0.00-0.03); Imm Gran Pct Auto 0.2 % (0.0-0.4); Lymphocytes Absolute Auto 1.9 X10*3/uL (1.2-4.9); Lymphocytes Percent Auto 34.9 % (20-40); Mean Corpuscular Hemoglobin 27.8 pg (27.0-33.0); Mean Corpuscular Volume 86.7 fL (80.0-98.0); Monocytes Absolute Auto 0.4 X10*3/uL (0.1-1.2); Monocytes Percent Auto 7.4 % (2-11); Neutrophils Percent Auto 53.9 % (45-73); Platelet Count 259 X10*3/uL (160-400); Red Blood Count 4.43 X10*6/uL (4.20-5.50); Red Cell Distribution Width 12.6 % (11.0-16.0); White Blood Count 5.6 X10*3/uL (4.8-10.8)
[2023-10-17 12:10] LABS: Estimated Average Glucose 163 mg/dL; Hemoglobin A1c % 7.3 % (<6.0)
[2023-10-17 12:15] LABS: Alanine Aminotransferase 14 U/L (0-31); Albumin Level 4.2 g/dL (3.5-5.0); Alkaline Phosphatase 73 U/L (39-117); Anion Gap 11 (12-20); Aspartate Amino Transferase 16 U/L (5-31); Bilirubin Total 0.5 mg/dL (0.0-1.0); Blood Urea Nitrogen 15 mg/dL (9-16); Calcium 9.9 mg/dL (8.4-10.2); Carbon Dioxide 25 mmol/L (22-29); Chloride 108 mmol/L (96-108); Cholesterol 163 mg/dL (<200); Estimated Glomerular Filt Rate > 60; Glucose Fasting 133 mg/dL (60-99); HDL Cholesterol 50 mg/dL (>40); LDL Cholesterol Calculated 96 mg/dL (<100); Potassium 4.1 mmol/L (3.3-5.1); Sodium 140 mmol/L (135-145); Total Protein 7.3 g/dL (6.5-8.0); Triglycerides 89 mg/dL (<150)
[2023-10-17 12:57] LABS: Creatinine Urine 76.32 mg/dL; Microalbumin Urine < 5.0 mg/L
== END 2023-10-17 08:06 | disposition home or self-care (01) ==
LOC: HO.HMGCLDS 08:05
PROVIDERS: PCP Internal Medicine; Visit Provider Internal Medicine
DX: I10 Essential (primary) hypertension (principal); E78.5 Hyperlipidemia, unspecified; K21.9 Gastro-esophageal reflux disease without esophagitis
CPT/HCPCS: 36415; 80053; 80061; 82570; 83036; 85025

== ENCOUNTER 2023-10-19 11:38 | Outpatient (AMB) | payer MEDICARE, SELFPAY ==
[2023-10-19 12:36] VITALS: BP 126/60; PULSE 81; O2SAT 96; BMI 38.9
--- NOTE | 2023-10-19 12:36 | MHC.PC.OV ---
Vital Signs 10/19/23 12:36 Height 5 ft Weight 199 lb BMI 38.9 BP 126/60 Blood Pressure Location Rt brachial Position Sitting Pulse 81 Pulse Source Pulse Oximeter Pulse Oximetry (%) 96 Oxygen Delivery Method Room Air Intake Visit Reasons: 6 month follow up DM Allergies No Known Drug Allergies Allergy (Unknown, Verified 10/19/23 12:40) Unknown dust Allergy (Unknown, Uncoded 04/03/23 12:00) Unknown Medication List - Last Reconciled 10/19/23 by Shannon Goins MD blood sugar diagnostic As directed blood sugar diagnostic ([employer] Verio test strips) check glucose twice a day blood-glucose meter ([employer] Verio Flex Start kit) 1 QD carvedilol 6.25 mg PO BID COVID-19 antigen test As directed COVID-19 antigen test ([employer] COVID-19 Ag Card Home Test kit) As directed dulaglutide 1.5 mg (0.5 mL) subcut QWEEK hydroxyzine HCl 10 -20 mg orally bedtime; insulin glargine (Lantus Solostar U-100 Insulin) 40 units (0.4 mL) subcut DAILY irbesartan-hydrochlorothiazide 300-12.5 mg 1 tab PO DAILY lancets ([employer] UltraSoft Lancets) 1 qd metformin 1,000 mg PO BID miscellaneous medical supply 1 ea miscellaneous .QD omeprazole 40 mg PO BID pen needle, diabetic bid pravastatin 20 mg PO DAILY Trulicity (dulaglutide) 0.75 mg (0.5 mL) subcut QWEEK NS Tobacco use date assessed: 10/19/23 Fall risk assessment: No Falls in past year Last assessed Fall Risk: 10/19/23 Dental Screening Dental Screen Date: 10/19/23 Did you have a dental visit in the last 12 months?: Yes Did you have a dental problem in the last 6 months where you did not have access to dental care?: No Was dental information given to patient?: Patient has dentist HPI 6 month follow up DM HPI Details Patient presents for the follow-up on hypertension hyperlipidemia type 2 diabetes. She has not been taking Trulicity regularly because of the shortage of the pharmacy. Patient gained 15 lbs since last visit and has not been exercising regularly. [facility] Medical History Bilateral knee pain Lower back pain Abdominal pain Chest pain Hyperlipidemia History of mammogram Diabetic eye exam JACKLYN (obstructive sleep apnea) Obesity HTN (hypertension) IDDM (insulin dependent diabetes mellitus) Surgical History H/O colonoscopy No pertinent past surgical history Family History Father No problems noted. Mother No problems noted. Social History Housing: House Alcohol intake: never Patient Tobacco Use Status: Never used Tobacco e-Cigarette/Vaping Use: Never Used Second Hand Smoke Exposure: No service: No Current occupational status: other Cognitive needs: No Hearing needs: No Vision needs: No Questionnaire Thrive Questionnaire Date Thrive assessed: 01/23/23 AUDIT C Alcohol Use Questionnaire (AUDIT-C) 1. How often do you have a drink containing alcohol?: Never 3. How often do you have six or more drinks on one occasion?: Never Total Score: 0 Score Reviewed/Action Taken: Yes APARNA-7 AMB Questionnaire APARNA-7 Date APARNA - 7 assessed: 01/23/23 Source: Developed by Drs. Giles Camara, Yesica Rocha, Leeroy Keith and colleagues, with an educational felicitas from [employer]. Review of Systems Const All systems reviewed & are unremarkable except as noted in HPI and below Eyes Reports no additional complaints ENT Reports no additional complaints Card Reports no additional complaints Resp Reports no additional complaints GI Reports no additional complaints Reports no additional complaints Physical exam (Primary Care) Vital Signs: Last Vital Signs Pulse 81 10/19/23 12:36 BP 126/60 10/19/23 12:36 Pulse Ox 96 10/19/23 12:36 Oxygen Delivery Method Room Air 10/19/23 12:36 BMI result Body Mass Index 38.9 Tobacco/Smoking Status: Tobacco use Status Tobacco use date assessed 10/19/23 10/19/23 12:41 Patient Tobacco Use Status Never used Tobacco 10/19/23 12:41 e-Cigarette/Vaping Use Never Used 10/19/23 12:41 Thrive Assessment: Date of Thrive Assessment Date Thrive assessed 01/23/23 10/19/23 12:41 Const General: no acute distress HENMT Head: Yes normal to inspection Ears: hearing grossly normal bilaterally Face and sinus: Yes normal facial exam Mouth: Normal oral and palatal mucosa present Throat: Yes posterior oropharynx normal Neck Neck: Yes supple Resp Effort & Inspection: normal respiratory effort Auscultation: clear to auscultation bilaterally Cardio Rhythm: regular rhythm Heart sounds: S1 normal heart sound present and S2 normal heart sound present GI Inspection: Yes normal to inspection Palpation (GI): Soft to palpation Percussion: Yes normal to percussion Auscultation: normal bowel sounds Assessment and Plan Assessment & Plan (1) HTN (hypertension): Comment: BP goal <130/80 Code(s): I10 - Essential (primary) hypertension Plan: cont current meds (2) IDDM (insulin dependent diabetes mellitus): Comment: A1C < 8 Plan: A1c is 7.3, ADA diet increase exercise weight loss discussed with the patient. She will continue Trulicity 1.5 mg weekly for 1 month to use her supply and then changed to Mounjaro 5 mg weekly. Follow-up in 3 months with a fasting labs before. Patient will start monitoring her glucose with Dexcom7 for insulin-dependent diabetes and to improve glycemic control (3) Hyperlipidemia: Code(s): E78.5 - Hyperlipidemia, unspecified Plan: Continue pravastatin Orders: Orders Hemoglobin A1c 3 Months E78.5 - Hyperlipidemia, unspecified, I10 - Essential (primary) hypertension Comprehensive [place]. Panel Fast 3 Months E78.5 - Hyperlipidemia, unspecified, I10 - Essential (primary) hypertension Lipid Panel 3 Months E78.5 - Hyperlipidemia, unspecified, I10 - Essential (primary) hypertension Microalbumin, Random (w Creat) 3 Months E78.5 - Hyperlipidemia, unspecified, I10 - Essential (primary) hypertension Medications: New blood-glucose sensor (Dexcom G7 Sensor device) As directed 1 ea 0RF tirzepatide (Mounjaro) 5 mg (0.5 mL) subcut QWEEK 6 mL 0RF Discontinued Trulicity (dulaglutide) Discontinued Reason: Doctor's Order 0.75 mg (0.5 mL) subcut QWEEK 6 mL 0RF NS Coding Level of Care Code Est Pt Level 4 (04258) Diagnoses HTN (hypertension) I10 IDDM (insulin dependent diabetes mellitus) Hyperlipidemia E78.5
== END 2023-10-19 13:29 | disposition home or self-care (01) ==
LOC: HO.HMGC 11:38
PROVIDERS: PCP Internal Medicine; Visit Provider Internal Medicine
DX: I10 Essential (primary) hypertension (principal); E78.5 Hyperlipidemia, unspecified; E11.69 Type 2 diabetes mellitus with other specified complication; Z79.4 Long term (current) use of insulin
CPT/HCPCS: 99214

== ENCOUNTER 2024-01-18 11:46 | Outpatient (AMB) | payer MEDICARE, SELFPAY ==
[2024-01-18 11:56] VITALS: BP 132/72; PULSE 78; O2SAT 99; BMI 39.4
--- NOTE | 2024-01-18 11:56 | A.OFFPC_ITS ---
Vital Signs 01/18/24 11:56 Height 5 ft Weight 202 lb BMI 39.4 BP 132/72 Blood Pressure Location Lt brachial Position Sitting Pulse 78 Pulse Source Pulse Oximeter Pulse Oximetry (%) 99 Oxygen Delivery Method Room Air Intake Visit Reasons: 3 month follow up Intake Note: Pt is here today for 3 months follow up visit. Allergies No Known Drug Allergies Allergy (Unknown, Verified 01/18/24 12:03) Unknown dust Allergy (Unknown, Uncoded 01/18/24 12:03) Unknown Medication List - Last Reconciled 01/18/24 by Shannon Goins MD blood sugar diagnostic As directed blood sugar diagnostic ([employer] Verio test strips) check glucose twice a day blood-glucose meter ([employer] Verio Flex Start kit) 1 QD blood-glucose sensor ([employer] G7 Sensor device) As directed carvedilol 6.25 mg PO BID insulin glargine (Lantus Solostar U-100 Insulin) 40 units (0.4 mL) subcut DAILY irbesartan-hydrochlorothiazide 300-12.5 mg 1 tab PO DAILY lancets ([employer] UltraSoft Lancets) 1 qd metformin 1,000 mg PO BID miscellaneous medical supply 1 ea miscellaneous .QD omeprazole 40 mg PO BID pen needle, diabetic bid pravastatin 20 mg PO DAILY tirzepatide (Mounjaro) 5 mg (0.5 mL) subcut QWEEK Tobacco use date assessed: 01/18/24 Fall risk assessment: No Falls in past year Last assessed Fall Risk: 01/18/24 Dental Screening Dental Screen Date: 01/18/24 Did you have a dental visit in the last 12 months?: Yes Did you have a dental problem in the last 6 months where you did not have access to dental care?: No Was dental information given to patient?: Patient has dentist HPI 3 month follow up HPI Details Patient presents for the follow-up of type 2 diabetes hypertension hyperlipidemia. She noticed improvement in her fasting glucose readings since starting Mounjaro 3 weeks ago down to 120. PFSH Medical History Bilateral knee pain Lower back pain Abdominal pain Chest pain Hyperlipidemia History of mammogram Diabetic eye exam JACKLYN (obstructive sleep apnea) Obesity HTN (hypertension) IDDM (insulin dependent diabetes mellitus) Surgical History H/O colonoscopy No pertinent past surgical history Family History Father No problems noted. Mother No problems noted. Social History Housing: House Alcohol intake: never Patient Tobacco Use Status: Never used Tobacco e-Cigarette/Vaping Use: Never Used Second Hand Smoke Exposure: No service: No Current occupational status: other Cognitive needs: No Hearing needs: No Vision needs: Yes Questionnaire Thrive Questionnaire Date Thrive assessed: 01/18/24 I am a: Patient What is your living situation today?: I have a steady place to live Within the past 12 months, did the food you bought not last and you didn't have the money to get more?: Never true Within the past 12 months, did you worry whether your food would run out before you got money to buy more?: Never true Do you have trouble paying for medicines?: No Do you have trouble getting transportation to medical appointments?: No Do you have trouble paying your heating and electricity bill?: I choose not to answer this question Do you have trouble taking care of your child, family member or friend?: No Do you have trouble with day-to-day activities such as bathing, preparing meals, shopping, managing finances, etc.?: No Are you currently unemployed and looking for a job?: Yes Are you interested in more education?: I choose not to answer this question Please select the resources that you would like help with: Utilities Currently or been in a relationship where the following occur: No concerns reported THRIVE Score: 0 AUDIT C Alcohol Use Questionnaire (AUDIT-C) 1. How often do you have a drink containing alcohol?: Monthly or less 2. How many drinks containing alcohol do you have on a typical day when you are drinking?: 1 or 2 3. How often do you have six or more drinks on one occasion?: Never Total Score: 1 APARNA-7 AMB Questionnaire APARNA-7 Date APARNA - 7 assessed: 01/18/24 Feeling nervous, anxious, or on edge: 0 = Not at all Not being able to stop or control worryin = Not at all Worrying too much about different things: 0 = Not at all Trouble relaxin = Not at all Being so restless that it is hard to sit still: 0 = Not at all Becoming easily annoyed or irritable: 0 = Not at all Feeling afraid as if something awful might happen: 0 = Not at all Total APARNA-7 score (0-4 normal; 5-9 mild; 10-14 moderate; 15-21 severe): 0 Source: Developed by Drs. Giles Camara, Yesica Rocha, Leeroy Keith and colleagues, with an educational felicitas from [employer]. Review of Systems Const All systems reviewed & are unremarkable except as noted in HPI and below ENT Reports no additional complaints Card Reports no additional complaints Resp Reports no additional complaints GI Reports no additional complaints Reports no additional complaints Physical exam (Primary Care) Vital Signs: Last Vital Signs Pulse 78 01/18/24 11:56 BP 132/72 01/18/24 11:56 Pulse Ox 99 01/18/24 11:56 Oxygen Delivery Method Room Air 01/18/24 11:56 BMI result Body Mass Index 39.4 Tobacco/Smoking Status: Tobacco use Status Tobacco use date assessed 01/18/24 01/18/24 12:07 Patient Tobacco Use Status Never used Tobacco 01/18/24 11:56 e-Cigarette/Vaping Use Never Used 01/18/24 11:56 Thrive Assessment: Date of Thrive Assessment Date Thrive assessed 01/18/24 01/18/24 12:07 Currently or been in a relationship where the following occur: No concerns reported Const General: no acute distress HENMT Face and sinus: Yes normal facial exam Neck Neck: Yes supple Resp Effort & Inspection: normal respiratory effort Auscultation: clear to auscultation bilaterally Cardio Rhythm: regular rhythm Heart sounds: S1 normal heart sound present and S2 normal heart sound present GI Inspection: Yes normal to inspection Palpation (GI): Soft to palpation Auscultation: normal bowel sounds Assessment and Plan Assessment & Plan (1) HTN (hypertension): Comment: BP goal <130/80 Code(s): I10 - Essential (primary) hypertension Plan: Continue current medications (2) Hyperlipidemia: Code(s): E78.5 - Hyperlipidemia, unspecified Plan: Continue statin (3) IDDM (insulin dependent diabetes mellitus): Comment: A1C < 8 Plan: ADA diet increase exercise weight loss discussed with the patient. Continue current medications follow-up in 4 months with a fasting labs before Orders: Orders Complete Blood Count Auto Diff 4 Months E78.5 - Hyperlipidemia, unspecified, I10 - Essential (primary) hypertension Lipid Panel 4 Months E78.5 - Hyperlipidemia, unspecified, I10 - Essential (primary) hypertension Comprehensive [place]. Panel Fast 4 Months E78.5 - Hyperlipidemia, unspecified, I10 - Essential (primary) hypertension Hemoglobin A1c 4 Months E78.5 - Hyperlipidemia, unspecified, I10 - Essential (primary) hypertension Microalbumin, Random (w Creat) 4 Months E78.5 - Hyperlipidemia, unspecified, I10 - Essential (primary) hypertension Coding Level of Care Code Est Pt Level 4 (31697) Diagnoses HTN (hypertension) I10 Hyperlipidemia E78.5 IDDM (insulin dependent diabetes mellitus)
== END 2024-01-18 13:28 | disposition home or self-care (01) ==
PROVIDERS: PCP Internal Medicine; Visit Provider Internal Medicine
DX: I10 Essential (primary) hypertension (principal); E78.5 Hyperlipidemia, unspecified
CPT/HCPCS: 99214

== ENCOUNTER 2024-04-18 09:04 | Outpatient (AMB) | payer MEDICARE, SELFPAY ==
[2024-04-18 09:05] VITALS: BP 122/78; PULSE 86; O2SAT 98; BMI 39.1
--- NOTE | 2024-04-18 09:05 | A.OFFPC_ITS ---
Vital Signs 04/18/24 09:05 Height 5 ft Weight 200 lb BMI 39.1 BP 122/78 Blood Pressure Location Lt brachial Position Sitting Pulse 86 Pulse Source Pulse Oximeter Pulse Oximetry (%) 98 Oxygen Delivery Method Room Air Intake Visit Reasons: Cough, aches Intake Note: Pt is here today for a sick visit. Pt c/o cough,body aches, itchy and red eyes for couple of days now. Allergies No Known Drug Allergies Allergy (Unknown, Verified 04/18/24 09:09) Unknown dust Allergy (Unknown, Uncoded 04/18/24 09:09) Unknown Medication List - Last Reconciled 04/18/24 by Shannon Goins MD blood sugar diagnostic As directed blood sugar diagnostic ([employer] Verio test strips) check glucose twice a day blood-glucose meter ([employer] Verio Flex Start kit) 1 QD blood-glucose sensor ([employer] G7 Sensor device) As directed carvedilol 6.25 mg PO BID insulin glargine (Lantus Solostar U-100 Insulin) 40 units (0.4 mL) subcut DAILY irbesartan-hydrochlorothiazide 300-12.5 mg 1 tab PO DAILY lancets ([employer] UltraSoft Lancets) 1 qd metformin 1,000 mg PO BID miscellaneous medical supply 1 ea miscellaneous .QD omeprazole 40 mg PO BID pen needle, diabetic bid pravastatin 20 mg PO DAILY tirzepatide (Mounjaro) 5 mg (0.5 mL) subcut QWEEK Tobacco use date assessed: 01/18/24 Fall risk assessment: No Falls in past year Last assessed Fall Risk: 04/18/24 Dental Screening Dental Screen Date: 01/18/24 HPI Cough, aches HPI Details Pt presents complaining of productive cough, with yellow sputum sinus congestion postnasal drip for 1 week. She denies fever chills night sweats pleurisy. Diabetes is stable with a fasting glucose of 120. PFSH Medical History Bilateral knee pain Lower back pain Abdominal pain Chest pain Hyperlipidemia History of mammogram Diabetic eye exam JACKLYN (obstructive sleep apnea) Obesity HTN (hypertension) IDDM (insulin dependent diabetes mellitus) Surgical History H/O colonoscopy No pertinent past surgical history Family History Father No problems noted. Mother No problems noted. Social History Housing: House Alcohol intake: never Patient Tobacco Use Status: Never used Tobacco e-Cigarette/Vaping Use: Never Used Second Hand Smoke Exposure: No service: No Current occupational status: other Cognitive needs: No Hearing needs: No Vision needs: Yes Questionnaire Thrive Questionnaire Date Thrive assessed: 01/18/24 I am a: Patient What is your living situation today?: I have a steady place to live Within the past 12 months, did the food you bought not last and you didn't have the money to get more?: Never true Within the past 12 months, did you worry whether your food would run out before you got money to buy more?: Never true Do you have trouble paying for medicines?: No Do you have trouble getting transportation to medical appointments?: No Do you have trouble paying your heating and electricity bill?: I choose not to answer this question Do you have trouble taking care of your child, family member or friend?: No Do you have trouble with day-to-day activities such as bathing, preparing meals, shopping, managing finances, etc.?: No Are you currently unemployed and looking for a job?: Yes Are you interested in more education?: I choose not to answer this question Please select the resources that you would like help with: Utilities Currently or been in a relationship where the following occur: No concerns reported THRIVE Score: 0 APARNA-7 AMB Questionnaire APARNA-7 Date APARNA - 7 assessed: 01/18/24 Source: Developed by Drs. Giles Camara, Yesica Rocha, Leeroy Keith and colleagues, with an educational felicitas from [employer]. Review of Systems Const All systems reviewed & are unremarkable except as noted in HPI and below ENT Reports no additional complaints Card Reports no additional complaints Resp Reports no additional complaints GI Reports no additional complaints Physical exam (Primary Care) Vital Signs: Last Vital Signs Pulse 86 04/18/24 09:05 BP 122/78 04/18/24 09:05 Pulse Ox 98 04/18/24 09:05 Oxygen Delivery Method Room Air 04/18/24 09:05 BMI result Body Mass Index 39.1 Tobacco/Smoking Status: Tobacco use Status Tobacco use date assessed 01/18/24 04/18/24 09:05 Patient Tobacco Use Status Never used Tobacco 04/18/24 09:05 e-Cigarette/Vaping Use Never Used 04/18/24 09:05 Thrive Assessment: Date of Thrive Assessment Date Thrive assessed 01/18/24 04/18/24 09:05 Currently or been in a relationship where the following occur: No concerns reported Const General: no acute distress HENMT Head: Yes normal to inspection Ears: TM's normal bilaterally Face and sinus: Yes sinus tenderness Throat: Yes postnasal drainage Eyes Other: Injected conjunctiva bilaterally Neck Neck: Yes supple Resp Effort & Inspection: normal respiratory effort Auscultation: rhonchi and diminished lung sounds Cardio Rhythm: regular rhythm Heart sounds: S1 normal heart sound present and S2 normal heart sound present Coding Level of Care Code Est Pt Level 3 (38586) Diagnoses IDDM (insulin dependent diabetes mellitus) Bronchitis J40 Assessment & Plan Assessment & Plan (1) IDDM (insulin dependent diabetes mellitus): Comment: A1C < 8 Category: Medical Plan: Continue current medications (2) Bronchitis: Code(s): J40 - Bronchitis, not specified as acute or chronic Category: Medical Plan: Z-Ras and Tessalon Perles are prescribed and supportive care discussed with the patient Medications: New 2 azithromycin For 250 mg dose pack: take 500 mg today (day 1), then 250 mg for 4 days (days 2-5) PO 6 tabs 0RF benzonatate 100 mg PO TID 30 caps 0RF
== END 2024-04-18 10:09 | disposition home or self-care (01) ==
PROVIDERS: PCP Internal Medicine; Visit Provider Internal Medicine
DX: J40 Bronchitis, not specified as acute or chronic (principal)

== ENCOUNTER → 2024-04-18 09:04 | Outpatient (BNVA) | payer MEDICARE, SELFPAY | PROVIDERS: PCP Internal Medicine; Visit Provider Internal Medicine | DX: J40 Bronchitis, not specified as acute or chronic (principal); E11.9 Type 2 diabetes mellitus without complications; Z79.4 Long term (current) use of insulin | CPT/HCPCS: 99212 ==

== ENCOUNTER 2024-05-07 07:26 | Outpatient (REF) | payer MEDICARE, SELFPAY ==
[2024-05-07 11:38] LABS: Estimated Average Glucose 146 mg/dL; Hemoglobin A1C 165.1221 umol/L; Hemoglobin A1c % 6.7 % (<6.0); Total Hemoglobin (HGBA1C) 3343.7399 umol/L
[2024-05-07 11:46] LABS: Alanine Aminotransferase 14 U/L (0-31); Albumin Level 4.1 g/dL (3.5-5.0); Alkaline Phosphatase 77 U/L (39-117); Anion Gap 14 (12-20); Aspartate Amino Transferase 23 U/L (5-31); Bilirubin Total 0.6 mg/dL (0.0-1.0); Blood Urea Nitrogen 11 mg/dL (9-16); Calcium 9.3 mg/dL (8.4-10.2); Carbon Dioxide 24 mmol/L (22-29); Chloride 104 mmol/L (96-108); Cholesterol 143 mg/dL (<200); Estimated Glomerular Filt Rate > 60; Glucose Fasting 152 mg/dL (60-99); HDL Cholesterol 45 mg/dL (>40); LDL Cholesterol Calculated 74 mg/dL (<100); Potassium 3.9 mmol/L (3.3-5.1); Sodium 138 mmol/L (135-145); Total Protein 7.5 g/dL (6.5-8.0); Triglycerides 122 mg/dL (<150)
[2024-05-07 11:51] LABS: Creatinine Urine 215.93 mg/dL
== END 2024-05-07 07:27 | disposition home or self-care (01) ==
LOC: HO.HMGCLDS 07:26
PROVIDERS: PCP Internal Medicine; Visit Provider Internal Medicine
DX: I10 Essential (primary) hypertension (principal); E78.5 Hyperlipidemia, unspecified; Z13.1 Encounter for screening for diabetes mellitus
CPT/HCPCS: 36415; 80053; 80061; 82043; 82570; 83036

== ENCOUNTER 2024-05-09 12:40 | Outpatient (AMB) | payer MEDICARE, SELFPAY ==
[2024-05-09 12:59] VITALS: BP 116/64; PULSE 79; O2SAT 97; BMI 38.5
--- NOTE | 2024-05-09 12:59 | A.OFFPC_ITS ---
"Vital Signs 05/09/24 12:59 Height 5 ft Weight 197 lb BMI 38.5 BP 116/64 Blood Pressure Location Rt brachial Position Sitting Pulse 79 Pulse Source Pulse Oximeter Pulse Oximetry (%) 97 Oxygen Delivery Method Room Air Intake Visit Reasons: Annual PE - see comments Intake Note: Pt is here today for PE. Allergies No Known Drug Allergies Allergy (Unknown, Verified 05/09/24 12:59) Unknown dust Allergy (Unknown, Uncoded 05/09/24 12:59) Unknown Medication List - Last Reconciled 05/09/24 by Shannon Goins MD blood sugar diagnostic As directed blood sugar diagnostic ([employer] Verio test strips) check glucose twice a day blood-glucose meter ([employer] Verio Flex Start kit) 1 QD blood-glucose sensor ([employer] G7 Sensor device) As directed carvedilol 6.25 mg PO BID insulin glargine (Lantus Solostar U-100 Insulin) 40 units (0.4 mL) subcut DAILY irbesartan-hydrochlorothiazide 300-12.5 mg 1 tab PO DAILY lancets ([employer] UltraSoft Lancets) 1 qd metformin 1,000 mg PO BID miscellaneous medical supply 1 ea miscellaneous .QD omeprazole 40 mg PO BID pen needle, diabetic bid pravastatin 20 mg PO DAILY tirzepatide (Mounjaro) 5 mg (0.5 mL) subcut QWEEK Tobacco use date assessed: 05/09/24 Fall risk assessment: No Falls in past year Last assessed Fall Risk: 05/09/24 Dental Screening Dental Screen Date: 05/09/24 Did you have a dental visit in the last 12 months?: Yes Did you have a dental problem in the last 6 months where you did not have access to dental care?: No Was dental information given to patient?: Patient has dentist HPI Annual PE - see comments HPI Details Pt presents for PE. PFSH Medical History Bilateral knee pain Lower back pain Abdominal pain Chest pain Hyperlipidemia History of mammogram Diabetic eye exam JACKLYN (obstructive sleep apnea) Obesity HTN (hypertension) IDDM (insulin dependent diabetes mellitus) Surgical History (Updated 05/09/24 @ 13:41 by Shannon Goins MD) H/O colonoscopy No pertinent past surgical history Family History Father No problems noted. Mother No problems noted. Social History Housing: House Alcohol intake: never Patient Tobacco Use Status: Never used Tobacco e-Cigarette/Vaping Use: Never Used Second Hand Smoke Exposure: No service: No Current occupational status: other Cognitive needs: No Hearing needs: No Vision needs: Yes Questionnaire PHQ-9 Over the last 2 weeks, how often have you been bothered by any of the following problems? 1. Little interest or pleasure in doing things: not at all 2. Feeling down, depressed, or hopeless: not at all 3. Trouble falling or staying asleep, or sleeping too much: not at all 4. Feeling tired or having little energy: not at all 5. Poor appetite or overeating: not at all 6. Feeling bad about yourself - or that you are a failure or have let yourself or your family down: not at all 7. Trouble concentrating on things, such as reading the newspaper or watching television: not at all 8. Moving or speaking so slowly that other people could have noticed. Or the opposite - being so fidgety or restless that you have been moving around a lot more than usual: not at all 9. Thoughts that you would be better off or of hurting yourself in some way: not at all Total score: 0 Depression Screening Interpretation: Negative Depression Screening Done: Yes 43894 - PHQ-9 Billing: Yes Source: Developed by Drs. Giles Camara, Yesica Rocha, Leeroy Keith and colleagues, with an educational felicitas from [employer]. Thrive Questionnaire Date Thrive assessed: 01/18/24 I am a: Patient What is your living situation today?: I have a steady place to live Within the past 12 months, did the food you bought not last and you didn't have the money to get more?: Never true Within the past 12 months, did you worry whether your food would run out before you got money to buy more?: Never true Do you have trouble paying for medicines?: No Do you have trouble getting transportation to medical appointments?: No Do you have trouble paying your heating and electricity bill?: I choose not to answer this question Do you have trouble taking care of your child, family member or friend?: No Do you have trouble with day-to-day activities such as bathing, preparing meals, shopping, managing finances, etc.?: No Are you currently unemployed and looking for a job?: Yes Are you interested in more education?: I choose not to answer this question Please select the resources that you would like help with: Utilities Currently or been in a relationship where the following occur: No concerns reported THRIVE Score: 0 AUDIT C Alcohol Use Questionnaire (AUDIT-C) 1. How often do you have a drink containing alcohol?: Never 3. How often do you have six or more drinks on one occasion?: Never Total Score: 0 APARNA-7 AMB Questionnaire APARNA-7 Date APARNA - 7 assessed: 01/18/24 Source: Developed by Drs. Giles Camara, Yesica Rocha, Leeroy Keith and colleagues, with an educational felicitas from [employer]. Review of Systems Const All systems reviewed & are unremarkable except as noted in HPI and below Eyes Reports no additional complaints ENT Reports no additional complaints Card Reports no additional complaints Resp Reports no additional complaints GI Reports no additional complaints Reports no additional complaints Musc Reports no additional complaints Physical exam (Primary Care) Vital Signs: Last Vital Signs Pulse 79 05/09/24 12:59 BP 116/64 05/09/24 12:59 Pulse Ox 97 05/09/24 12:59 Oxygen Delivery Method Room Air 05/09/24 12:59 BMI result Body Mass Index 38.5 Tobacco/Smoking Status: Tobacco use Status Tobacco use date assessed 05/09/24 05/09/24 13:00 Patient Tobacco Use Status Never used Tobacco 05/09/24 13:00 e-Cigarette/Vaping Use Never Used 05/09/24 13:00 PHQ-9: PHQ-9 Score PHQ-9: Total score 0 05/09/24 13:22 Depression Screening Interpretation: Negative Thrive Assessment: Date of Thrive Assessment Date Thrive assessed 01/18/24 05/09/24 13:00 Currently or been in a relationship where the following occur: No concerns reported Const General: no acute distress HENMT Head: Yes normal to inspection Ears: hearing grossly normal bilaterally Face and sinus: Yes normal facial exam Throat: Yes posterior oropharynx normal Eyes General: appearance normal, both eyes and all related structures Neck Neck: Yes no lymphadenopathy and Yes supple Resp Effort & Inspection: normal respiratory effort Auscultation: clear to auscultation bilaterally Cardio Rhythm: regular rhythm Heart sounds: S1 normal heart sound present and S2 normal heart sound present GI Inspection: Yes normal to inspection Palpation (GI): Soft to palpation Percussion: Yes normal to percussion Auscultation: normal bowel sounds Coding Level of Care Code Est Pt Prev Care >65y(80619) Diagnoses IDDM (insulin dependent diabetes mellitus) HTN (hypertension) I10 Hyperlipidemia E78.5 Annual physical exam Z00.00 Additional Codes PHQ-9 - 33742 - PHQ-9 Billing: Yes ([id number]) Assessment & Plan Assessment & Plan (1) IDDM (insulin dependent diabetes mellitus): Comment: A1C < 8 Category: Medical Plan: A1C IS 6.7, CONTINUE CURRENT MEDICATIONS INCREASE MOUNJARO TO 7.5 MG FOR A MONTH AND THEN 10 MG IF PATIENT TOLERATES. ADA diet increase physical activity weight loss discussed with the patient's (2) HTN (hypertension): Comment: BP goal <130/80 Code(s): I10 - Essential (primary) hypertension Category: Medical Plan: Continue current medications (3) Hyperlipidemia: Code(s): E78.5 - Hyperlipidemia, unspecified Category: Medical Plan: Continue statin (4) Annual physical exam: Code(s): Z00.00 - Encounter for general adult medical examination without abnormal findings Category: Medical Plan: Patient is up-to-date with mammogram colonoscopy return in 4 months with a fasting labs before Orders: Orders Hemoglobin A1c 4 Months E78.5 - Hyperlipidemia, unspecified, I10 - Essential (primary) hypertension, Z00.00 - Encounter for general adult medical examination without abnormal findings Comprehensive [place]. Panel Fast 4 Months E78.5 - Hyperlipidemia, unspecified, I10 - Essential (primary) hypertension, Z00.00 - Encounter for general adult medical examination without abnormal findings Lipid Panel 4 Months E78.5 - Hyperlipidemia, unspecified, I10 - Essential (primary) hypertension, Z00.00 - Encounter for general adult medical examination without abnormal findings Microalbumin, Random (w Creat) 4 Months E78.5 - Hyperlipidemia, unspecified, I10 - Essential (primary) hypertension, Z00.00 - Encounter for general adult medical examination without abnormal findings Complete Blood Count Auto Diff 4 Months E78.5 - Hyperlipidemia, unspecified, I10 - Essential (primary) hypertension, Z00.00 - Encounter for general adult medical examination without abnormal findings Medications: New Mounjaro (tirzepatide) 7.5 mg (0.5 mL) subcut QWEEK 2 mL 0RF NS"
== END 2024-05-09 14:04 | disposition home or self-care (01) ==
PROVIDERS: PCP Internal Medicine; Visit Provider Internal Medicine
DX: I10 Essential (primary) hypertension (principal); E78.5 Hyperlipidemia, unspecified; Z00.00 Encounter for general adult medical examination without abnormal findings

== ENCOUNTER → 2024-05-09 12:40 | Outpatient (BNVA) | payer MEDICARE, SELFPAY | PROVIDERS: PCP Internal Medicine; Visit Provider Internal Medicine | DX: Z00.00 Encounter for general adult medical examination without abnormal findings (principal); I10 Essential (primary) hypertension; E78.5 Hyperlipidemia, unspecified | CPT/HCPCS: 96127; 99397 ==

== ENCOUNTER 2024-08-18 12:29 | Outpatient (AMB) | payer MEDICARE, SELFPAY ==
[2024-08-18 12:42] VITALS: BP 118/76; PULSE 80; TEMP 36.6; O2SAT 97; BMI 39.1
--- NOTE | 2024-08-18 12:42 | MHC.PC.OV ---
Vital Signs 08/18/24 12:42 Height 5 ft Weight 200 lb BMI 39.1 BP 118/76 Blood Pressure Location Lt brachial Position Sitting Pulse 80 Pulse Source Pulse Oximeter Temp 97.8 F Temp Source Oral Pulse Oximetry (%) 97 Intake Visit Reasons: Discuss insulin Allergies No Known Drug Allergies Allergy (Unknown, Verified 08/18/24 12:43) Unknown dust Allergy (Unknown, Uncoded 05/09/24 12:59) Unknown Medication List - Last Reconciled 08/18/24 by Shannon Goins MD blood sugar diagnostic As directed blood sugar diagnostic (Guardian [employer] ProductsTouch Verio test strips) check glucose twice a day blood-glucose meter (DailyPath Verio Flex Start kit) 1 QD blood-glucose sensor (Kartela G7 Sensor device) As directed carvedilol 6.25 mg PO BID irbesartan-hydrochlorothiazide 300-12.5 mg 1 tab PO DAILY lancets ([employer] ProductsTouch UltraSoft Lancets) 1 qd metformin 1,000 mg PO BID miscellaneous medical supply 1 ea miscellaneous .QD Mounjaro (tirzepatide) 10 mg (0.5 mL) subcut QWEEK NS omeprazole 40 mg PO BID pen needle, diabetic bid pravastatin 20 mg PO DAILY tirzepatide (Mounjaro) 5 mg (0.5 mL) subcut QWEEK Tresiba FlexTouch U-100 (insulin degludec) 40 units (0.4 mL) subcut DAILY NS Tobacco use date assessed: 08/18/24 Dental Screening Dental Screen Date: 05/09/24 HPI Discuss insulin HPI Details Patient presents for the follow-up of insulin-dependent diabetes and hyperlipidemia. Patient has changed her health insurance and she needs to change Basaglar insulin to Lantus. Patient has increased the dose of Mounjaro to 10 mg for the last month and has been tolerating medication well. FORMERLY [facility], [facility]1983 Medical History Bilateral knee pain Lower back pain Abdominal pain Chest pain Hyperlipidemia History of mammogram Diabetic eye exam JACKLYN (obstructive sleep apnea) Obesity HTN (hypertension) IDDM (insulin dependent diabetes mellitus) Surgical History H/O colonoscopy No pertinent past surgical history Family History Father No problems noted. Mother No problems noted. Social History Housing: House Alcohol intake: never Patient Tobacco Use Status: Never used Tobacco e-Cigarette/Vaping Use: Never Used Second Hand Smoke Exposure: No service: No Current occupational status: other Cognitive needs: No Hearing needs: No Vision needs: Yes Questionnaire PHQ-9 Over the last 2 weeks, how often have you been bothered by any of the following problems? 1. Little interest or pleasure in doing things: not at all 2. Feeling down, depressed, or hopeless: not at all 3. Trouble falling or staying asleep, or sleeping too much: not at all 4. Feeling tired or having little energy: not at all 5. Poor appetite or overeating: not at all 6. Feeling bad about yourself - or that you are a failure or have let yourself or your family down: not at all 7. Trouble concentrating on things, such as reading the newspaper or watching television: not at all 8. Moving or speaking so slowly that other people could have noticed. Or the opposite - being so fidgety or restless that you have been moving around a lot more than usual: not at all 9. Thoughts that you would be better off or of hurting yourself in some way: not at all Total score: 0 Depression Screening Interpretation: Negative Depression Screening Done: Yes 07389 - PHQ-9 Billing: Yes Source: Developed by Drs. Giles Camara, Yesica Rocha, Leeroy Keith and colleagues, with an educational felicitas from [employer]. Thrive Questionnaire Date Thrive assessed: 01/18/24 I am a: Patient What is your living situation today?: I have a steady place to live Within the past 12 months, did the food you bought not last and you didn't have the money to get more?: I choose not to answer this question Within the past 12 months, did you worry whether your food would run out before you got money to buy more?: I choose not to answer this question Do you have trouble paying for medicines?: Yes Do you have trouble getting transportation to medical appointments?: No Do you have trouble paying your heating and electricity bill?: Yes Do you have trouble taking care of your child, family member or friend?: No Do you have trouble with day-to-day activities such as bathing, preparing meals, shopping, managing finances, etc.?: No Are you currently unemployed and looking for a job?: No Are you interested in more education?: No Please select the resources that you would like help with: Paying for medicine Currently or been in a relationship where the following occur: I choose not to answer THRIVE Score: 1 AUDIT C Alcohol Use Questionnaire (AUDIT-C) 1. How often do you have a drink containing alcohol?: Never Total Score: 0 APARNA-7 AMB Questionnaire APARNA-7 Date APARNA - 7 assessed: 01/18/24 Feeling nervous, anxious, or on edge: 0 = Not at all Not being able to stop or control worryin = Not at all Worrying too much about different things: 0 = Not at all Trouble relaxin = Not at all Being so restless that it is hard to sit still: 0 = Not at all Becoming easily annoyed or irritable: 0 = Not at all Feeling afraid as if something awful might happen: 0 = Not at all Total APARNA-7 score (0-4 normal; 5-9 mild; 10-14 moderate; 15-21 severe): 0 Source: Developed by Drs. Giles Camara, Yesica Rocha, Leeroy Keith and colleagues, with an educational felicitas from [employer]. Review of Systems Const All systems reviewed & are unremarkable except as noted in HPI and below Eyes Reports no additional complaints Card Reports no additional complaints Resp Reports no additional complaints GI Reports no additional complaints Reports no additional complaints Physical exam (Primary Care) Vital Signs: Last Vital Signs Temp 97.8 F 08/18/24 12:42 Pulse 80 08/18/24 12:42 BP 118/76 08/18/24 12:42 Pulse Ox 97 08/18/24 12:42 BMI result Body Mass Index 39.1 Tobacco/Smoking Status: Tobacco use Status Tobacco use date assessed 08/18/24 08/18/24 12:45 Patient Tobacco Use Status Never used Tobacco 08/18/24 12:45 e-Cigarette/Vaping Use Never Used 08/18/24 12:45 PHQ-9: PHQ-9 Score PHQ-9: Total score 0 08/18/24 12:45 Depression Screening Interpretation: Negative Thrive Assessment: Date of Thrive Assessment Date Thrive assessed 01/18/24 08/18/24 12:45 Currently or been in a relationship where the following occur: I choose not to answer Const General: no acute distress Eyes General: appearance normal, both eyes and all related structures Neck Neck: Yes supple Resp Auscultation: clear to auscultation bilaterally Cardio Rhythm: regular rhythm Heart sounds: S1 normal heart sound present and S2 normal heart sound present GI Inspection: Yes normal to inspection Palpation (GI): Soft to palpation Percussion: Yes normal to percussion Coding Level of Care Code Est Pt Level 3 (07117) Diagnoses IDDM (insulin dependent diabetes mellitus) HTN (hypertension) I10 Additional Codes PHQ-9 - 80030 - PHQ-9 Billing: Yes ([id number]) Assessment & Plan Assessment & Plan (1) IDDM (insulin dependent diabetes mellitus): Comment: A1C < 8 Category: Medical Plan: ADA diet increase physical activity weight loss discussed with the patient. She will continue Mounjaro and changed from Lantus to Basaglar follow-up next month with a fasting labs before (2) HTN (hypertension): Comment: BP goal <130/80 Code(s): I10 - Essential (primary) hypertension Category: Medical Plan: Continue current medications Medications: New insulin glargine (Basaglar KwikPen U-100 Insulin) 45 units (0.45 mL) subcut BID 15 mL 3RF Discontinued tirzepatide (Mounjaro) Discontinued Reason: Doctor's Order 5 mg (0.5 mL) subcut QWEEK 6 mL 1RF
--- OUTSIDE RECORDS SUMMARY | 2024-08-18 13:26 | XMS_ITS | Data Portability ---
Author Organization [facility], PAIN OFFICE Address [address],[facility] [address] [place] [address] Care Team Providers Care Stock Preparer Name Role Phone EUFEMIA MASON Primary Care Provider Assessment Encounter Date Assessment Date Assessment LastModified by Organization Details LastModified Time 11/13/2017 11/13/2017 Nica Dawson is a 62 year old woman with complaints of bilateral knee pain, left is greater than right. On exam, she has tenderness on palpation of the medial joint line with mild swelling of the left knee. I recommend a trial of left knee steroid injection under ultrasound guidance. The risks and benefits of the procedure were discussed in detail. She wishes to proceed. She can follow up for a right knee steroid injection under ultrasound guidance in two weeks. [email or web address] Not available 11/30/2017 09:21:30 08/04/2018 08/04/2018 Nica Dawson is a 62 year old woman with complaints of bilateral knee pain, left is greater than right. On exam, she has tenderness on palpation of the medial joint line with mild swelling of the left knee. I recommend a X-ray of her knee. I have advised her to take glucosamine daily and to do exercises to strengthen her quadriceps muscles. [email or web address] Not available 08/09/2018 15:58:43 Plan of Treatment Reminders Order Date Submit Date Provider Last Modified By Organization Details Last Modified Time Details Appointments None recorded. Lab None recorded. Referral None recorded. Procedures None recorded. Surgeries None recorded. Imaging None recorded. Medication Orders lidocaine 5 % topical patch 2017 018 [email or web address] [id number], [phone] [place], [address], 9 13:58:34 Patient TargetsNo targets recorded. Patient Instructions Encounter Date Encounter Id Patient Instructions Last Modified By Organization Details Last Modified Time 11/13/2017 [id number] She is a diabetic . Blood sugar levels may temporarily increase after steroid injections. She was advised to check blood glucose levels three times a day post procedure. If levels are above 250, she was advised to contact the PCP. [email or web address] Not available 11/30/2017 09:21:05 She was advised against bed rest lasting longer than four days and to continue activities as tolerated. [email or web address] Not available 11/30/2017 09:21:38 08/04/2018 [id number] [email or web address] Not available 08/09/2018 15:58:01 She was advised against bed rest lasting longer than four days and to continue activities as tolerated. [email or web address] Not available 08/09/2018 15:52:21 Reason for Referral None Reported. Problems Name Problem SNOMED Code Status Onset Date Resolution Date Notes Provider Name and Address Organization Details Recorded Time Osteoarthritis of knee 026242485 Active Dionte diaz MD [address] [facility] , [address], [place], [address], [place] [facility] 8 11:53:47 Neuropathy due to diabetes mellitus 623384025 Active Dionte diaz MD [address] [facility] , [address], [place], [address], [place] [facility] 8 11:54:01 Problem Notes None recorded. Procedures Surgical History Date Name Laterality Status Provider Name and Address Organization Details Recorded Time 11/14/19 18 Intra-articular Knee Steroid Injection completed Dionte Sandhu MD [address] , [address], [place], [address], [place] [facility] 11/20/2017 11:30:04 Hysterectomy completed Jacey Deras [place] [facility] 11/13/2017 11:08:21 Imaging Results None recorded. Procedure Notes None recorded. Medical Equipment None Reported. Allergies No known drug allergies Medications Name Sig Start Date Stop Date Status Note LastModified by Organization Details LastModified Time Prescripti on - Prior Authorizat ion Request 08/04 completed Not Available Not Available Not Available Mapap Extra Strength 500 mg tablet TAKE 2 TABLETS BY MOUTH EVERY 8 HOURS active Not Available Not Available No t Available carvedilol 6.25 mg tablet active Not Available Not Available Not Available benzonatat e 200 mg capsule 08/04 completed Not Available Not Available Not Available gabapentin 400 mg capsule 08/04 completed Not Available Not Available Not Available meclizine 25 mg tablet 11/13 completed Not Available Not Available Not Available oseltamivi r 75 mg capsule 11/13 completed Not Available Not Available Not Available metformin 1,000 mg tablet active Not Available Not Available Not Available irbesartan 300 mg-hydroch lorothiazi de 12.5 mg tablet active Not Available Not Available Not Available lidocaine 5 % topical patch APPLY 1 PATCH BY TRANSDER MAL ROUTE ONCE DAILY (MAY WEAR UP TO 12HOURS. ) 08/04 completed Not Available Not Available Not Available Vesicare 5 mg tablet active as needed Not Available Not Available Not Available valsartan 320 mg-hydroch lorothiazi de 12.5 mg tablet 08/04 completed Not Available Not Available Not Available Lantus Solostar U-100 Insulin 100 unit/mL (3 mL) subcutaneo us pen active Not Available Not Available Not Available OneTouch Delica Lancets 30 gauge active Not Available Not Available Not Available Bydureon 2 mg/0.65 mL subcutaneo us pen injector active Not Available Not Available Not Available OneTouch Ultra Blue Test Strip active Not Available Not Available N ot Available Vitals Date Recorded Heart rate Oxygen saturation Oxygen saturation in Arterial blood by Pulse oximetry Body height Body mass index (BMI) Body weight Systolic blood pressure Diastolic blood pressure Provider Name and Address Organization Details Last Updated DateTime 8 79 /min 96 % 96 % 160.02 cm 37.6 kg/m2 07603.5 8 g 149 mm[Hg] 68 mm[Hg] Jacey Deras [place] [facility] 8 10:58:50 Date Recorded Body height Heart rate Oxygen saturation Oxygen saturation in Arterial blood by Pulse oximetry Systolic blood pressure Diastolic blood pressure Provider Name and Address Organization Details Last Updated DateTime 9 160.02 cm 76 /min 98 % 98 % 142 mm[Hg] 72 mm[Hg] Jacey Deras [place] [facility] 9 13:55:44 Social History Question Answer Notes LastModified by Organizat ion Details LastModified Time Tobacco Smoking Status Never Smoker Not Available [facility] 04/13/2020 03:16:10 What Is Your Level Of Alcohol Consumption? None [id number] Information not available 04/13/2020 Are You Currently Employed? No [id number] Information not available 04/13/2020 Which Illicit Or Recreational Drugs Have You Used? No [id number] Information not available 04/13/2020 Education 12 [facility] Information no t available 11/13/2017 Live Alone Or With Others? With Others [facility] Information not available 11/13/2017 [email or web address] Informatio n not available 11/13/2017 What Was The Date Of Your Most Recent Tobacco Screening? 08/09/2018 [id number] Information not available 04/13/2020 Sex: Unknown Functional Status None recorded. Mental Status None recorded. Family History Relationship Description Onset Age of this Age Resolved Age Notes LastModified by Organization Details LastModified Time Father No current problems or disability [email or web address] Not available 11/13 11:07:39 Mother No current problems or disability [email or web address] Not available 11/13 11:07:39 Medical History Condition Response Diabetes Y Arthritis Y Hypertension Y Gynecological HistoryNo gynecological history recorded. Obstetrics History GPAL:G 0 P 0 0 0 0 Past Encounters Encounter ID Performer Location Encounter Start Date Encounter Closed Date Diagnosis/Indication Diagnosis SNOMED-CT Code Diagnosis ICD10 Code Diagnosis Note [id number] Dionte Sandhu MD PAIN OFFICE [address] [place] [address] 11/13/2017 10:28:06 11/20/2017 11:36:27 Neuropathy due to diabetes mellitus 413784485 E11.40 Osteoarthr itis of knee 465456455 M17.0 [id number] Dionte Sandhu MD PAIN OFFICE [address] [place] [address] 08/04/2018 13:42:22 08/09/2018 15:59:16 Osteoarthritis of knee 119229252 M17.0 Neuropathy due to diabetes mellitus 610289259 E11.40 Health Concerns Section Related Observation LastModified by Organization Detai ls LastModified Time None Recorded Concern Status LastModified by Organization Details LastModified Time None Recorded Advance Directives Directive None Recorded Payers Encounter Date Sequence Insurance Name Policy Number Policy Ramos Covered Member ID Ramos Member ID Guarantor Name 11/13/2017 1 [facility] Nica Dawson [id number] Nica Dawson 08/04/2018 1 [facility] Nica Dawson [id number] Nica Dawson Notes Date Note Type Note Provider Name and Address Organization Details Recorded Time 11/13/2017 text/html Nica goins is a 62 year old woman with complaints of bilateral knee pain, left is greater than right. THe pain started two years ago and is becoming worse . Current pain level varies from 3-4 to 10/10. She describes the pain as a shrap stabbing pain which is at times aching and shooting in nature. Pain is present constantly and is relieved a little with advil. Pain interferes with her sleep. She has seen [facility] and has osteoarthritis of her left knee and had injections which helped.She is [place] speaking and her friend is helping her. Dionte Sandhu MD [address] [facility] , [facility] [address], [place], [address], [facility] 12/01/2017 08:47:20 08/04/2018 text/html She is here for a follow up. She reports good pain benefit with last left knee steroid injection under ultrasound guidance for two weeks. She reports that her blood glucose level was high at 300-400 for three days after the injection and now her blood glucose levels are back to usual levels. She wants other options for her knee pain . Dionte Sandhu MD [address] [facility] [address] , [address], [place], [address], [facility] 08/17/2018 10:41:18 OBGyn Episode No OBEpisode recorded.
== END 2024-08-18 13:46 | disposition home or self-care (01) ==
PROVIDERS: PCP Internal Medicine; Visit Provider Internal Medicine
DX: I10 Essential (primary) hypertension (principal)

== ENCOUNTER → 2024-08-18 12:29 | Outpatient (BNVA) | payer MEDICARE, SELFPAY | PROVIDERS: PCP Internal Medicine; Visit Provider Internal Medicine | DX: I10 Essential (primary) hypertension (principal) | CPT/HCPCS: 96127; 99212 ==

== ENCOUNTER 2024-08-30 09:29 | Outpatient (REF) | payer MEDICARE, SELFPAY ==
[2024-08-30 14:54] LABS: Influenza A PCR POSITIVE (Negative); Influenza B PCR NEGATIVE (Negative); Resp Syncy Virus RNA Qual PCR NEGATIVE (Negative); SARS COV2 PCR INHOUSE NEGATIVE (Negative)
== END 2024-08-30 09:30 | disposition home or self-care (01) ==
LOC: HO.LAB 09:29
PROVIDERS: Physician Assistant; PCP Internal Medicine
DX: Z13.89 Encounter for screening for other disorder (principal)
CPT/HCPCS: 0241U; 99212

== ENCOUNTER 2024-08-30 09:29 | Outpatient (AMB) | payer MEDICARE, SELFPAY ==
--- NOTE | 2024-08-30 09:39 | AM.OFFWIN_ITS ---
Intake Vital Signs 08/30/24 09:41 Weight 200 lb BP 112/70 Blood Pressure Location Rt brachial Position Sitting Pulse 70 Pulse Source Pulse Oximeter Temp 97.6 F Temp Source Oral Pulse Oximetry (%) 95 Oxygen Delivery Method Room Air Intake Visit Reasons: EP-cough, body ache, dry mouth Intake Note: Patient here for cough, body aches, weakness that started about 4-5 days ago. Patient Tobacco Use Status: Never used Tobacco Allergies No Known Drug Allergies Allergy (Unknown, Verified 08/30/24 09:40) Unknown dust Allergy (Unknown, Uncoded 08/30/24 09:40) Unknown Do you need a note to return to daycare/school/sports/work: No HPI HPI Comments History of Present Illness Details History - The patient is a 69-year-old female pr esenting with persistent cough. - Onset was five days ago, with a fever of slightly over 100?F that has since resolved. Current symptoms include a significant cough, dry mouth, dizziness, and experiencing difficulty sleeping due to the cough. - The cough produces yellow phlegm and w as accompanied by mild breathing difficulty, primarily noted during the night, approximately two days before this visit but endorses no shortness of breath, wheezing or trouble breathing today. - Previous treatment consisted of DayQui l and NightQuil, which were ineffective. - tested positive for influenza a few days ago - There is no history of smoking, asthma , or chronic obstructive pulmonary disease that might contribute to the current respiratory symptoms. Physical Exam General: Cooperative, healthy appearing, comfortable and no acute distress Orientation/consciousness: Patient oriented x3 Limitations: No limitations Head: Normal to inspection Ears: Hearing grossly normal bilaterally, external ears normal and TM's normal bilaterally Nose: Normal external nose present, Normal nares present and No nasal discharge present Face and sinus: Normal facial exam and Yes sinuses nontender Mouth: Normal oral and palatal mucosa present and moist mucous membranes Throat: Yes tonsils normal, Yes uvula midline. Posterior oropharynx erythema Eyes: Appearance normal, both eyes and all related structures Neck: Normal visual inspection Respiratory: Clear but dim in RUL. Normal respiratory effort, able to speak in complete sentences, Actively coughing, no respiratory distress, not tachypneic, no tripod positioning and no use of accessory muscles. Cardiovascular: Regular rate and rhythm. Normal S1 and S2 Skin: No rashes or lesions noted Neuro: Patient oriented x3 Extremities: Normal to inspection and Yes no clubbing, cyanosis or edema PFSH Medical History Bilateral knee pain Lower back pain Abdominal pain Chest pain Hyperlipidemia History of mammogram Diabetic eye exam JACKLYN (obstructive sleep apnea) Obesity HTN (hypertension) IDDM (insulin dependent diabetes mellitus) Surgical History H/O colonoscopy No pertinent past surgical history Family History Father No problems noted. Mother No problems noted. Social History Housing: House Alcohol intake: never Patient Tobacco Use Status: Never used Tobacco e-Cigarette/Vaping Use: Never Used Second Hand Smoke Exposure: No service: No Current occupational status: other Cognitive needs: No Hearing needs: No Vision needs: Yes Review of Systems Const All systems reviewed & are unremarkable except as noted in HPI and below Physical Exam Vital Signs: Last Vital Signs Temp 97.6 F 08/30/24 09:41 Pulse 70 08/30/24 09:41 BP 112/70 08/30/24 09:41 Pulse Ox 95 08/30/24 09:41 Oxygen Delivery Method Room Air 08/30/24 09:41 Assessment & Plan Assessment & Plan (1) Acute viral syndrome: Code(s): B34.9 - Viral infection, unspecified Plan: O2 sat 94%, dim lung sounds in RUL, persistent cough, the patient will undergo a chest x-ray to exclude pneumonia. Ongoing management includes administering a cough suppressant for nocturnal symptom relief and hydration alongside ibuprofen for pain mitigation. Testing for influenza, COVID-19, and RSV will guide further interventions. If pneumonia is confirmed on imaging, antibiotics will be prescribed. Yuli D was recommended to address ongoing respiratory concerns. The patient will be notified of test results, with antibiotics sent to the pharmacy if necessary. Patient was informed and verbally consented to the use of an ambient scribe for clinic note documentation during this visit Orders: Orders SARS-CoV2/FLU/RSV Today R09.89 - Other specified symptoms and signs involving the circulatory and respiratory systems XR chest 2V Today R05.9 - Cough, unspecified Medications: New benzonatate 200 mg PO BEDTIME PRN 10 caps 0RF cough Coding Level of Care Code Est Pt Level 4 (54114) Diagnoses Acute viral syndrome B34.9
[2024-08-30 09:41] VITALS: BP 112/70; PULSE 70; TEMP 36.4; O2SAT 95
--- OUTSIDE RECORDS SUMMARY | 2024-08-30 10:36 | XMS_ITS | Data Portability ---
Author Organization [facility] Pain Managem socorro, PAIN OFFICE Address [address],[facility] [address] [place] [address] Care Team Providers Care Director Of Knowledge Management Name Role Phone EUFEMIA MASON Primary Care Provider [phone] Assessment Encounter Date Assessment Date Assessment LastModified [...] % topical patch 2017 018 [email or web address] [id number], [phone] [place], [address], 9 13:58:34 Patient TargetsNo targets recorded. Patient Instructions Encounter Date Encounter Id Patient Instructions Last Modified By Organization Details Last Modified Time 11/13/2017 [id number] She is a diabetic . Blood sugar [...] tolerated. [email or web address] Not available 11/30/2017 09:21:38 08/04/2018 [id number] [email or web address] Not available 08/09/2018 15:58:01 She was advised against bed rest lasting longer than four days and to continue activities as tolerated. [email or web address] Not available 08/09/2018 15:52:21 Reason for Referral None Reported. Problems Name Problem SNOMED Code Status Onset Date Resolution Date Notes Provider Name and Address Organization Details Recorded Time Osteoarthritis of knee 440666483 Active Dionte diaz MD [address] [facility] , [address], [place], [address], [place] [facility] 8 11:53:47 Neuropathy due to diabetes mellitus 009568070 Active Dionte diaz MD [address] [facility] , [address], [place], [address], [place] [facility] 8 11:54:01 Problem Notes None recorded. Procedures Surgical History Date Name Laterality Status Provider Name and Address Organization Details Recorded Time 11/14/19 18 Intra-articular Knee Steroid Injection completed Dionte Sandhu MD [address] [facility] , [address], [place], [address], [place] [facility] 11/20/2017 11:30:04 Hysterectomy completed Jacey Deras [place] [facility] 11/13/2017 11:08:21 Imaging [...] % 96 % 160.02 cm 37.6 kg/m2 96754.5 8 g 149 mm[Hg] 68 mm[Hg] Jacey [...] Tobacco Smoking Status Never Smoker Not Available [facility] 04/13/2020 03:16:10 What Is Your Level Of Alcohol Consumption? None [id number] Information not available 04/13/2020 Are You Currently Employed? No [id number] Information not available 04/13/2020 Which Illicit Or Recreational Drugs Have You Used? No [id number] Information not available 04/13/2020 Education 12 [facility] Information no t available 11/13/2017 Live Alone Or With Others? With Others [facility] Information not available 11/13/2017 [facility] In[facility] n not available 11/13/2017 What Was The Date Of Your Most Recent Tobacco Screening? 08/09/2018 [id number] Information not available 04/13/2020 Sex: Unknown Functional Status None recorded. Mental Status None recorded. Family History Relationship Description Onset Age of this Age Resolved Age Notes LastModified by Organization Details LastModified Time Father No current problems or disability [place] [id number] Not available 11/13 11:07:39 Mother No current problems or disability [facility] Not available 11/13 11:07:39 Medical History Condition Response Diabetes Y Arthritis Y Hypertension Y Gynecological HistoryNo gynecological history recorded. Obstetrics History GPAL:G 0 P 0 0 0 0 Past Encounters Encounter ID Performer Location Encounter Start Date Encounter Closed Date Diagnosis/Indication Diagnosis SNOMED-CT Code Diagnosis ICD10 Code Diagnosis Note [id number] Dionte Sandhu MD PAIN OFFICE [address] [place] [address] 11/13/2017 10:28:06 11/20/2017 11:36:27 Neuropathy due to diabetes mellitus 200490637 E11.40 Osteoarthr itis of knee 614975227 M17.0 [id number] Dionte Sandhu MD PAIN OFFICE [address] [place] [address] 08/04/2018 13:42:22 08/09/2018 15:59:16 Osteoarthritis of knee 025420159 M17.0 Neuropathy due to diabetes mellitus 776476217 E11.40 Health Concerns Section Related Observation LastModified by Organization Detai ls LastModified Time None Recorded Concern Status LastModified by Organization Details LastModified Time None Recorded Advance Directives Directive None Recorded Payers Encounter Date Sequence Insurance Name Policy Number Policy Ramos Covered Member ID Ramos Member ID Guarantor Name 11/13/2017 1 [facility] Nica Dawson [id number] Nica Dawson 08/04/2018 1 [facility] Nica Dawson [id number] Nica Dawson Notes Date Note Type Note [...] interferes with her sleep. She has seen [facility] and has osteoarthritis of her left knee and had injections which helped.She is Kazakh speaking and her friend is helping her. Dionte Sandhu MD [address] [facility] , [facility] [address], [place], [address], Amanda Huff DBA [facility] 12/01/2017 08:47:20 08/04/2018 text/html She [...] knee pain . Dionte Sandhu MD [address] [facility] , [address], [place], [address], Amanda Huff DBA [facility] 08/17/2018 10:41:18 OBGyn Episode No OBEpisode recorded.
== END 2024-08-30 10:26 | disposition home or self-care (01) ==
PROVIDERS: PCP Internal Medicine; Visit Provider Physician Assistant
DX: B34.9 Viral infection, unspecified (principal)

== ENCOUNTER 2024-08-30 09:56 | Outpatient (REF) | payer MEDICARE, SELFPAY ==
--- NOTE | ~2024-08-30 | XR_ITS ---
EXAMINATION: XR CHEST CLINICAL INFORMATION: R05.9 - Cough, unspecified COMPARISON: None available. TECHNIQUE: 2 views of the chest were obtained. FINDINGS: No significant abnormality is noted involving the heart, lungs, mediastinum, bony thorax or soft tissues. XR/XR chest 2V IMPRESSION: Unremarkable chest examination. Electronically signed by: Dagoberto Be MD 08/30/2024 10:42 AM [facility] [place], [place]
== END 2024-08-30 09:57 | disposition home or self-care (01) ==
LOC: HO.HMGCX 09:56
PROVIDERS: PCP Internal Medicine; Visit Provider Physician Assistant
DX: B34.9 Viral infection, unspecified (principal); R05.8 Other specified cough
CPT/HCPCS: 0241U; 71046; 99212

== ENCOUNTER → 2024-08-30 10:00 | Outpatient (BNV) | payer MEDICARE, SELFPAY | PROVIDERS: PCP Internal Medicine; Visit Provider Radiology Diagnostic Radiology | DX: R05.9 Cough, unspecified (principal) | CPT/HCPCS: 71046 ==

== ENCOUNTER 2024-09-17 07:49 | Outpatient (REF) | payer MEDICARE, SELFPAY ==
[2024-09-17 12:01] LABS: MANUAL DIFF FLAG NO
[2024-09-17 12:10] LABS: Basophils Absolute Auto 0.1 X10*3/uL (0.0-0.2); Basophils Percent Auto 1.1 % (0-2); Eosinophils Absolute Auto 0.1 X10*3/uL (0.0-0.4); Eosinophils Percent Auto 2.6 % (0-4); Hematocrit 38.6 % (37.0-47.0); Hemoglobin 12.6 g/dl (12.0-16.0); Imm Gran Abs Auto 0.01 X10*3/uL (0.00-0.03); Imm Gran Pct Auto 0.2 % (0.0-0.4); Lymphocytes Absolute Auto 1.7 X10*3/uL (1.2-4.9); Mean Corpuscular HGB Conc 32.6 g/dl (31.0-35.0); Mean Corpuscular Hemoglobin 27.8 pg (27.0-33.0); Mean Platelet Volume 11.8 fL (9.4-12.3); Monocytes Absolute Auto 0.4 X10*3/uL (0.1-1.2); Neutrophils Absolute Auto 2.4 x10*3/uL (2.0-8.3); Neutrophils Percent Auto 50.1 % (45-73); Platelet Count 287 X10*3/uL (160-400); Red Blood Count 4.54 X10*6/uL (4.20-5.50); Red Cell Distribution Width 13.7 % (11.0-16.0); White Blood Count 4.7 X10*3/uL (4.8-10.8)
[2024-09-17 12:32] LABS: Alanine Aminotransferase 21 U/L (0-31); Albumin Level 4.2 g/dL (3.5-5.0); Alkaline Phosphatase 75 U/L (39-117); Anion Gap 13 (12-20); Aspartate Amino Transferase 20 U/L (5-31); Bilirubin Total 0.5 mg/dL (0.0-1.0); Blood Urea Nitrogen 18 mg/dL (9-16); Calcium 9.7 mg/dL (8.4-10.2); Carbon Dioxide 23 mmol/L (22-29); Chloride 106 mmol/L (96-108); Cholesterol 146 mg/dL (<200); Estimated Glomerular Filt Rate > 60; Glucose Fasting 174 mg/dL (60-99); HDL Cholesterol 48 mg/dL (>40); LDL Cholesterol Calculated 79 mg/dL (<100); Potassium 4.2 mmol/L (3.3-5.1); Sodium 138 mmol/L (135-145); Total Protein 7.8 g/dL (6.5-8.0); Triglycerides 98 mg/dL (<150)
[2024-09-17 12:48] LABS: Estimated Average Glucose 160 mg/dL; Hemoglobin A1c % 7.2 % (<6.0)
== END 2024-09-17 07:50 | disposition home or self-care (01) ==
LOC: HO.HMGCLDS 07:49
PROVIDERS: PCP Internal Medicine; Visit Provider Internal Medicine
DX: Z00.00 Encounter for general adult medical examination without abnormal findings (principal); E78.5 Hyperlipidemia, unspecified; I10 Essential (primary) hypertension; Z13.1 Encounter for screening for diabetes mellitus
CPT/HCPCS: 36415; 80053; 80061; 83036; 85025

== ENCOUNTER 2024-09-19 10:48 | Outpatient (AMB) | payer MEDICARE, SELFPAY ==
[2024-09-19 11:08] VITALS: BP 120/72; PULSE 82; RESP 18; TEMP 36.7; O2SAT 99; BMI 38.5
--- NOTE | 2024-09-19 11:08 | MHC.PC.OV ---
Vital Signs 09/19/24 11:08 Height 5 ft Weight 197 lb BMI 38.5 BP 120/72 Blood Pressure Location Lt brachial Position Sitting Respiration 18 Pulse 82 Pulse Source Pulse Oximeter Temp 98.0 F Temp Source Oral Pulse Oximetry (%) 99 Oxygen Delivery Method Room Air Intake Visit Reasons: 4 months f/up Intake Note: Pt is here today for 4 months follow up visit. Allergies No Known Drug Allergies Allergy (Unknown, Verified 09/19/24 11:08) Unknown dust Allergy (Unknown, Uncoded 09/19/24 11:08) Unknown Medication List - Last Reconciled 09/19/24 by Shannon Goins MD blood sugar diagnostic As directed blood sugar diagnostic (Docu[employer]AP Verio test strips) check glucose twice a day blood-glucose meter (DocuTAP Verio Flex Start kit) 1 QD blood-glucose sensor ([employer] G7 Sensor device) As directed carvedilol 6.25 mg PO BID insulin glargine (Basaglar KwikPen U-100 Insulin) 45 units (0.45 mL) subcut BID irbesartan-hydrochlorothiazide 300-12.5 mg 1 tab PO DAILY lancets (APROOFEDTouch UltraSoft Lancets) 1 qd metformin 1,000 mg PO BID miscellaneous medical supply 1 ea miscellaneous .QD Mounjaro (tirzepatide) 10 mg (0.5 mL) subcut QWEEK NS omeprazole 40 mg PO BID pen needle, diabetic bid pravastatin 20 mg PO DAILY Tresiba FlexTouch U-100 (insulin degludec) 40 units (0.4 mL) subcut DAILY NS Tobacco use date assessed: 09/19/24 Fall risk assessment: No Falls in past year Last assessed Fall Risk: 09/19/24 Dental Screening Dental Screen Date: 09/19/24 Did you have a dental visit in the last 12 months?: Yes Did you have a dental problem in the last 6 months where you did not have access to dental care?: No Was dental information given to patient?: Patient has dentist HPI 4 months f/up HPI Details Patient presents follow-up of type 2 diabetes hypertension hyperlipidemia stable on current medications PFSH Medical History Bilateral knee pain Lower back pain Abdominal pain Chest pain Hyperlipidemia History of mammogram Diabetic eye exam JACKLYN (obstructive sleep apnea) Obesity HTN (hypertension) IDDM (insulin dependent diabetes mellitus) Surgical History H/O colonoscopy No pertinent past surgical history Family History Father No problems noted. Mother No problems noted. Social History Housing: House Alcohol intake: never Patient Tobacco Use Status: Never used Tobacco e-Cigarette/Vaping Use: Never Used Second Hand Smoke Exposure: No service: No Current occupational status: other Cognitive needs: No Hearing needs: No Vision needs: Yes Questionnaire PHQ-9 Over the last 2 weeks, how often have you been bothered by any of the following problems? 1. Little interest or pleasure in doing things: not at all 2. Feeling down, depressed, or hopeless: not at all 3. Trouble falling or staying asleep, or sleeping too much: not at all 4. Feeling tired or having little energy: not at all 5. Poor appetite or overeating: not at all 6. Feeling bad about yourself - or that you are a failure or have let yourself or your family down: not at all 7. Trouble concentrating on things, such as reading the newspaper or watching television: not at all 8. Moving or speaking so slowly that other people could have noticed. Or the opposite - being so fidgety or restless that you have been moving around a lot more than usual: not at all 9. Thoughts that you would be better off or of hurting yourself in some way: not at all Total score: 0 Depression Screening Interpretation: Negative Depression Screening Done: Yes 24828 - PHQ-9 Billing: Yes Source: Developed by Drs. Giles Camara, Yesica Rocha, Leeroy Keith and colleagues, with an educational felicitas from [employer]. Thrive Questionnaire Date Thrive assessed: 09/19/24 I am a: Patient What is your living situation today?: I have a steady place to live Within the past 12 months, did the food you bought not last and you didn't have the money to get more?: I choose not to answer this question Within the past 12 months, did you worry whether your food would run out before you got money to buy more?: I choose not to answer this question Do you have trouble paying for medicines?: Yes Do you have trouble getting transportation to medical appointments?: No Do you have trouble paying your heating and electricity bill?: Yes Do you have trouble taking care of your child, family member or friend?: No Do you have trouble with day-to-day activities such as bathing, preparing meals, shopping, managing finances, etc.?: No Are you currently unemployed and looking for a job?: No Are you interested in more education?: No Please select the resources that you would like help with: Paying for medicine Currently or been in a relationship where the following occur: I choose not to answer THRIVE Score: 1 AUDIT C Alcohol Use Questionnaire (AUDIT-C) 1. How often do you have a drink containing alcohol?: Never 3. How often do you have six or more drinks on one occasion?: Never Total Score: 0 APARNA-7 AMB Questionnaire APARNA-7 Date APARNA - 7 assessed: 09/19/24 Feeling nervous, anxious, or on edge: 0 = Not at all Not being able to stop or control worryin = Not at all Worrying too much about different things: 0 = Not at all Trouble relaxin = Not at all Being so restless that it is hard to sit still: 0 = Not at all Becoming easily annoyed or irritable: 0 = Not at all Feeling afraid as if something awful might happen: 0 = Not at all Total APARNA-7 score (0-4 normal; 5-9 mild; 10-14 moderate; 15-21 severe): 0 Source: Developed by Drs. Giles Camara, Yesica Rocha, Leeroy Keith and colleagues, with an educational felicitas from [employer]. APARNA-7 Assessment Billing APARNA-7 Assessment Tool: APARNA-7 Assessment 92060 Review of Systems Const All systems reviewed & are unremarkable except as noted in HPI and below ENT Reports no additional complaints Card Reports no additional complaints Resp Reports no additional complaints GI Reports no additional complaints Reports no additional complaints Physical exam (Primary Care) Vital Signs: Last Vital Signs Temp 98.0 F 09/19/24 11:08 Pulse 82 09/19/24 11:08 Resp 18 09/19/24 11:08 BP 120/72 09/19/24 11:08 Pulse Ox 99 09/19/24 11:08 Oxygen Delivery Method Room Air 09/19/24 11:08 BMI result Body Mass Index 38.5 Tobacco/Smoking Status: Tobacco use Status Tobacco use date assessed 09/19/24 09/19/24 11:09 Patient Tobacco Use Status Never used Tobacco 09/19/24 11:09 e-Cigarette/Vaping Use Never Used 09/19/24 11:09 PHQ-9: PHQ-9 Score PHQ-9: Total score 0 09/19/24 11:09 Depression Screening Interpretation: Negative Thrive Assessment: Date of Thrive Assessment Date Thrive assessed 09/19/24 09/19/24 11:09 Currently or been in a relationship where the following occur: I choose not to answer Const General: no acute distress HENMT Head: Yes normal to inspection Eyes General: appearance normal, both eyes and all related structures Resp Effort & Inspection: normal respiratory effort Auscultation: clear to auscultation bilaterally Cardio Rhythm: regular rhythm Heart sounds: S1 normal heart sound present and S2 normal heart sound present GI Inspection: Yes normal to inspection Palpation (GI): Soft to palpation Percussion: Yes normal to percussion Auscultation: normal bowel sounds Coding Level of Care Code Est Pt Level 4 (78644) Diagnoses IDDM (insulin dependent diabetes mellitus) HTN (hypertension) I10 Hyperlipidemia E78.5 Additional Codes APARNA-7 Assessment Billing - APARNA-7 Assessment Tool: APARNA-7 Assessment 39304 ([id number]) PHQ-9 - 46345 - PHQ-9 Billing: Yes ([id number]) Assessment & Plan Assessment & Plan (1) IDDM (insulin dependent diabetes mellitus): Comment: A1C < 8 Category: Medical Plan: A1c is 7.2. Continue current medications ADA diet increase physical activity follow-up in 3 months with a fasting labs before (2) HTN (hypertension): Comment: BP goal <130/80 Code(s): I10 - Essential (primary) hypertension Category: Medical Plan: Continue current medications (3) Hyperlipidemia: Code(s): E78.5 - Hyperlipidemia, unspecified Category: Medical Plan: Continue statin Orders: Orders Comprehensive [place]. Panel Fast 3 Months E78.5 - Hyperlipidemia, unspecified, I10 - Essential (primary) hypertension Hemoglobin A1c 3 Months E78.5 - Hyperlipidemia, unspecified, I10 - Essential (primary) hypertension Complete Blood Count Auto Diff 3 Months E78.5 - Hyperlipidemia, unspecified, I10 - Essential (primary) hypertension Lipid Panel 3 Months E78.5 - Hyperlipidemia, unspecified, I10 - Essential (primary) hypertension Microalbumin, Random (w Creat) 3 Months E78.5 - Hyperlipidemia, unspecified, I10 - Essential (primary) hypertension
== END 2024-09-19 12:05 | disposition home or self-care (01) ==
LOC: HO.HMCC 10:49
PROVIDERS: PCP Internal Medicine; Visit Provider Internal Medicine
DX: I10 Essential (primary) hypertension (principal); E78.5 Hyperlipidemia, unspecified

== ENCOUNTER → 2024-09-19 10:48 | Outpatient (BNVA) | payer MEDICARE, SELFPAY | PROVIDERS: PCP Internal Medicine; Visit Provider Internal Medicine | DX: E11.9 Type 2 diabetes mellitus without complications (principal); E78.5 Hyperlipidemia, unspecified; I10 Essential (primary) hypertension; Z79.4 Long term (current) use of insulin | CPT/HCPCS: 96127; 99212 ==

== ENCOUNTER 2024-12-03 07:33 | Outpatient (REF) | payer MEDICARE, SELFPAY ==
[2024-12-03 11:10] LABS: MANUAL DIFF FLAG NO
[2024-12-03 11:17] LABS: Basophils Percent Auto 0.6 % (0-2); Eosinophils Absolute Auto 0.1 X10*3/uL (0.0-0.4); Eosinophils Percent Auto 1.8 % (0-4); Hematocrit 38.2 % (37.0-47.0); Hemoglobin 12.4 g/dl (12.0-16.0); Imm Gran Abs Auto 0.02 X10*3/uL (0.00-0.03); Imm Gran Pct Auto 0.3 % (0.0-0.4); Lymphocytes Absolute Auto 2.2 X10*3/uL (1.2-4.9); Lymphocytes Percent Auto 33.3 % (20-40); Mean Corpuscular HGB Conc 32.5 g/dl (31.0-35.0); Mean Corpuscular Hemoglobin 27.7 pg (27.0-33.0); Mean Corpuscular Volume 85.3 fL (80.0-98.0); Mean Platelet Volume 11.7 fL (9.4-12.3); Monocytes Absolute Auto 0.4 X10*3/uL (0.1-1.2); Monocytes Percent Auto 6.8 % (2-11); Neutrophils Absolute Auto 3.7 x10*3/uL (2.0-8.3); Neutrophils Percent Auto 57.2 % (45-73); Platelet Count 268 X10*3/uL (160-400); Red Blood Count 4.48 X10*6/uL (4.20-5.50); Red Cell Distribution Width 13.4 % (11.0-16.0); White Blood Count 6.5 X10*3/uL (4.8-10.8)
[2024-12-03 11:29] LABS: Estimated Average Glucose 143 mg/dL; Hemoglobin A1C 163.1376 umol/L; Hemoglobin A1c % 6.6 % (<6.0); Total Hemoglobin (HGBA1C) 3344.8279 umol/L
[2024-12-03 11:30] LABS: Alanine Aminotransferase 16 U/L (0-31); Albumin Level 4.3 g/dL (3.5-5.0); Alkaline Phosphatase 67 U/L (39-117); Anion Gap 10 (12-20); Aspartate Amino Transferase 20 U/L (5-31); Bilirubin Total 0.5 mg/dL (0.0-1.0); Blood Urea Nitrogen 19 mg/dL (9-16); Calcium 9.4 mg/dL (8.4-10.2); Carbon Dioxide 26 mmol/L (22-29); Chloride 106 mmol/L (96-108); Cholesterol 154 mg/dL (<200); Estimated Glomerular Filt Rate > 60; Glucose Fasting 159 mg/dL (60-99); HDL Cholesterol 51 mg/dL (>40); LDL Cholesterol Calculated 84 mg/dL (<100); Sodium 138 mmol/L (135-145); Total Protein 7.1 g/dL (6.5-8.0); Triglycerides 96 mg/dL (<150)
[2024-12-03 11:41] LABS: Creatinine Urine 123.14 mg/dL; Microalbum/Creatinine Ratio Ur 8.1 ug/mg cr (<30)
== END 2024-12-03 07:34 | disposition home or self-care (01) ==
LOC: HO.HMGCLDS 07:33
PROVIDERS: PCP Internal Medicine; Visit Provider Internal Medicine
DX: I10 Essential (primary) hypertension (principal); E78.5 Hyperlipidemia, unspecified
CPT/HCPCS: 36415; 80053; 80061; 82043; 82570; 83036; 85025

== ENCOUNTER 2024-12-05 08:19 | Outpatient (AMB) | payer MEDICARE, SELFPAY ==
[2024-12-05 08:22] VITALS: BP 110/74; PULSE 86; RESP 18; TEMP 36.8; O2SAT 98; BMI 38.7
--- NOTE | 2024-12-05 08:22 | MHC.PC.OV ---
Vital Signs 12/05/24 08:22 Height 5 ft Weight 198 lb BMI 38.7 BP 110/74 Blood Pressure Location Rt brachial Position Sitting Respiration 18 Pulse 86 Pulse Source Pulse Oximeter Temp 98.2 F Temp Source Oral Pulse Oximetry (%) 98 Oxygen Delivery Method Room Air Intake Visit Reasons: Follow up DM Intake Note: Pt is here today for a follow up visit on DM. Allergies No Known Drug Allergies Allergy (Unknown, Verified 12/05/24 08:24) Unknown dust Allergy (Unknown, Uncoded 12/05/24 08:24) Unknown Medication List - Last Reconciled 12/05/24 by Shannon Goins MD blood sugar diagnostic As directed blood sugar diagnostic ([employer] Verio test strips) check glucose twice a day blood-glucose meter ([employer] Player Verio Flex Start kit) 1 QD blood-glucose sensor ([employer] G7 Sensor device) As directed carvedilol 6.25 mg PO BID insulin glargine (Basaglar KwikPen U-100 Insulin) 45 units (0.45 mL) subcut BID irbesartan-hydrochlorothiazide 300-12.5 mg 1 tab PO DAILY lancets ([employer] UltraSoft Lancets) 1 qd metformin 1,000 mg PO BID miscellaneous medical supply 1 ea miscellaneous .QD Mounjaro (tirzepatide) 12.5 mg (0.5 mL) subcut QWEEK NS omeprazole 40 mg PO BID pen needle, diabetic bid pravastatin 20 mg PO DAILY Tobacco use date assessed: 12/05/24 Fall risk assessment: No Falls in past year Last assessed Fall Risk: 12/05/24 Dental Screening Dental Screen Date: 12/05/24 Did you have a dental visit in the last 12 months?: Yes Did you have a dental problem in the last 6 months where you did not have access to dental care?: No Was dental information given to patient?: Patient has dentist HPI Follow up DM HPI Details Patient presents for the follow-up of insulin-dependent diabetes, hypertension hyperlipidemia stable on current medications. She complains of chronic anterior cerda pain worse when laying down in bed or sleeping. Patient denies pain in the legs when walking or claudication leg swelling or heaviness PFSH Medical History Bilateral knee pain Lower back pain Abdominal pain Chest pain Hyperlipidemia History of mammogram Diabetic eye exam JACKLYN (obstructive sleep apnea) Obesity HTN (hypertension) IDDM (insulin dependent diabetes mellitus) Surgical History H/O colonoscopy No pertinent past surgical history Family History Father No problems noted. Mother No problems noted. Social History Housing: House Alcohol intake: never Patient Tobacco Use Status: Never used Tobacco e-Cigarette/Vaping Use: Never Used Second Hand Smoke Exposure: No service: No Current occupational status: other Cognitive needs: No Hearing needs: No Vision needs: Yes Questionnaire PHQ-9 Over the last 2 weeks, how often have you been bothered by any of the following problems? 1. Little interest or pleasure in doing things: not at all 2. Feeling down, depressed, or hopeless: not at all 3. Trouble falling or staying asleep, or sleeping too much: not at all 4. Feeling tired or having little energy: not at all 5. Poor appetite or overeating: not at all 6. Feeling bad about yourself - or that you are a failure or have let yourself or your family down: not at all 7. Trouble concentrating on things, such as reading the newspaper or watching television: not at all 8. Moving or speaking so slowly that other people could have noticed. Or the opposite - being so fidgety or restless that you have been moving around a lot more than usual: not at all 9. Thoughts that you would be better off or of hurting yourself in some way: not at all Total score: 0 Depression Screening Interpretation: Negative Depression Screening Done: Yes 72212 - PHQ-9 Billing: Yes Source: Developed by Drs. Giles Camara, Yesica Rocha, Leeroy Keith and colleagues, with an educational felicitas from [employer]. Thrive Questionnaire Date Thrive assessed: 12/05/24 I am a: Patient What is your living situation today?: I have a steady place to live Within the past 12 months, did the food you bought not last and you didn't have the money to get more?: I choose not to answer this question Within the past 12 months, did you worry whether your food would run out before you got money to buy more?: I choose not to answer this question Do you have trouble paying for medicines?: Yes Do you have trouble getting transportation to medical appointments?: No Do you have trouble paying your heating and electricity bill?: Yes Do you have trouble taking care of your child, family member or friend?: No Do you have trouble with day-to-day activities such as bathing, preparing meals, shopping, managing finances, etc.?: No Are you currently unemployed and looking for a job?: No Are you interested in more education?: No Please select the resources that you would like help with: Paying for medicine Currently or been in a relationship where the following occur: I choose not to answer THRIVE Score: 1 AUDIT C Alcohol Use Questionnaire (AUDIT-C) 1. How often do you have a drink containing alcohol?: Never 3. How often do you have six or more drinks on one occasion?: Never Total Score: 0 APARNA-7 AMB Questionnaire APARNA-7 Date APARNA - 7 assessed: 12/05/24 Feeling nervous, anxious, or on edge: 0 = Not at all Not being able to stop or control worryin = Not at all Worrying too much about different things: 0 = Not at all Trouble relaxin = Not at all Being so restless that it is hard to sit still: 0 = Not at all Becoming easily annoyed or irritable: 0 = Not at all Feeling afraid as if something awful might happen: 0 = Not at all Total APARNA-7 score (0-4 normal; 5-9 mild; 10-14 moderate; 15-21 severe): 0 Source: Developed by Drs. Giles Camara, Yesica Rocha, Leeroy Keith and colleagues, with an educational felicitas from [employer]. APARNA-7 Assessment Billing APARNA-7 Assessment Tool: APARNA-7 Assessment 90399 Review of Systems Const All systems reviewed & are unremarkable except as noted in HPI and below Eyes Reports no additional complaints ENT Reports no additional complaints Card Reports no additional complaints Resp Reports no additional complaints GI Reports no additional complaints Reports no additional complaints Physical exam (Primary Care) Vital Signs: Last Vital Signs Temp 98.2 F 12/05/24 08:22 Pulse 86 12/05/24 08:22 Resp 18 12/05/24 08:22 BP 110/74 12/05/24 08:22 Pulse Ox 98 12/05/24 08:22 Oxygen Delivery Method Room Air 12/05/24 08:22 BMI result Body Mass Index 38.7 Tobacco/Smoking Status: Tobacco use Status Tobacco use date assessed 12/05/24 12/05/24 08:25 Patient Tobacco Use Status Never used Tobacco 12/05/24 08:25 e-Cigarette/Vaping Use Never Used 12/05/24 08:22 PHQ-9: PHQ-9 Score PHQ-9: Total score 0 12/05/24 08:25 Depression Screening Interpretation: Negative Thrive Assessment: Date of Thrive Assessment Date Thrive assessed 12/05/24 12/05/24 08:25 Currently or been in a relationship where the following occur: I choose not to answer Const General: no acute distress HENMT Head: Yes normal to inspection Ears: hearing grossly normal bilaterally Face and sinus: Yes normal facial exam Eyes General: appearance normal, both eyes and all related structures Neck Neck: Yes no lymphadenopathy and Yes supple Resp Effort & Inspection: normal respiratory effort Auscultation: clear to auscultation bilaterally Cardio Rhythm: regular rhythm Heart sounds: S1 normal heart sound present and S2 normal heart sound present GI Inspection: Yes normal to inspection Palpation (GI): Soft to palpation Percussion: Yes normal to percussion Extrem Other: Not calf tenderness nor soft tissue swelling of both lower extremities, there is a full range of motion in both knees and ankles joints General: Yes no clubbing, cyanosis or edema Coding Level of Care Code Est Pt Level 4 (63619) Diagnoses IDDM (insulin dependent diabetes mellitus) HTN (hypertension) I10 Hyperlipidemia E78.5 Additional Codes APARNA-7 Assessment Billing - APARNA-7 Assessment Tool: APARNA-7 Assessment 26560 ([id number]) PHQ-9 - 67410 - PHQ-9 Billing: Yes ([id number]) Assessment & Plan Assessment & Plan (1) IDDM (insulin dependent diabetes mellitus): Comment: A1C < 8 Category: Medical Plan: A1c is 6.6. Continue ADA diet increase physical activity weight loss discussed with the patient increase Mounjaro to 12.5 mg weekly and continue the rest of the medications. Follow-up in 3 months with a fasting labs before (2) HTN (hypertension): Comment: BP goal <130/80 Code(s): I10 - Essential (primary) hypertension Category: Medical Plan: Continue current medications (3) Hyperlipidemia: Code(s): E78.5 - Hyperlipidemia, unspecified Category: Medical Plan: Continue statin Orders: Orders Comprehensive [place]. Panel Fast 3 Months E78.5 - Hyperlipidemia, unspecified, I10 - Essential (primary) hypertension Hemoglobin A1c 3 Months E78.5 - Hyperlipidemia, unspecified, I10 - Essential (primary) hypertension Lipid Panel 3 Months E78.5 - Hyperlipidemia, unspecified, I10 - Essential (primary) hypertension Microalbumin, Random (w Creat) 3 Months E78.5 - Hyperlipidemia, unspecified, I10 - Essential (primary) hypertension Medications: New Mounjaro (tirzepatide) 12.5 mg (0.5 mL) subcut QWEEK 6 mL 1RF NS Discontinued Mounjaro (tirzepatide) Discontinued Reason: Doctor's Order 10 mg (0.5 mL) subcut QWEEK 6 mL 1RF NS
--- OUTSIDE RECORDS SUMMARY | 2024-12-05 08:25 | XMS_ITS | Data Portability ---
Author Organization [facility] Pain Managem soc[facility], PAIN OFFICE Address [address] [facility] [address] [place] [address] Care Team Providers Care Seat Mender Name Role Phone EUFEMIA MASON Primary Care [...] % topical patch 2017 018 [email or web address] [id number], [phone] [place], [address], 9 13:58:34 Patient TargetsNo targets recorded. Patient Instructions Encounter Date Encounter Id Patient Instructions Last Modified By Organization Details Last Modified Time 11/13/2017 [id number] She is a diabetic . Blood sugar [...] tolerated. [email or web address] Not available 11/30/2017 09:21:38 08/04/2018 [id number] [email or web address] Not available 08/09/2018 15:58:01 She was advised against bed rest lasting longer than four days and to continue activities as tolerated. [email or web address] Not available 08/09/2018 15:52:21 Reason for Referral None Reported. Problems Name Problem SNOMED Code Status Onset Date Resolution Date Notes Provider Name and Address Organization Details Recorded Time Osteoarthritis of knee 327321119 Active Dionte diaz MD [address] [facility] , [address], [place], [address], [place] [facility] 8 11:53:47 Neuropathy due to diabetes mellitus 482046189 Active Dionte diaz MD [address] , [address], [place], [address], [place] [facility] 8 11:54:01 Problem Notes None recorded. Procedures Surgical History Date Name Laterality Status Provider Name and Address Organization Details Recorded Time 11/14/19 18 Intra-articular Knee Steroid Injection completed Dionte Sandhu MD [address] , [address], [place], [address], [place] [facility] 11/20/2017 11:30:04 Hysterectomy completed Jacey Deras [place] [facility] 11/13/2017 11:08:21 Imaging [...] Available N ot Available Vitals Date Recorded Body height Heart rate Oxygen saturation Oxygen saturation in Arterial blood by Pulse oximetry Systolic blood pressure Diastolic blood pressure Provider Name and Address Organization Details Last Updated DateTime 9 160.02 cm 76 /min 98 % 98 % 142 mm[Hg] 72 mm[Hg] Jacey Deras [place] [facility] 9 13:55:44 Date Recorded Heart rate Oxygen saturation Oxygen saturation in Arterial blood by Pulse oximetry Body height Body mass index (BMI) Body weight Systolic blood pressure Diastolic blood pressure Provider Name and Address Organization Details Last Updated DateTime 8 79 /min 96 % 96 % 160.02 cm 37.6 kg/m2 83750.5 8 g 149 mm[Hg] 68 mm[Hg] Jacey Deras [place] [facility] 8 10:58:50 Social History Question Answer Notes LastModified by Organizat ion Details LastModified Time Tobacco Smoking Status Never Smoker Not Available [employer] 04/13/2020 03:16:10 Which Illicit Or Recreational Drugs Have You Used? No [id number] Information not available 04/13/2020 Education 12 [email or web address] Information no t available 11/13/2017 Live Alone Or With Others? With Others [email or web address] Information not available 11/13/2017 Marital Status [email or web address] Informatio n not available 11/13/2017 What Was The Date Of Your Most Recent Tobacco Screening? 08/09/[id number] Information not available 04/13/2020 Sex: Unknown Functional Status Question Answer Note LastModified by Organization D etails LastModified Time What is your level of alcohol consumption? None [id number] Information not available 04/13/2020 Are you currently employed? No [id number] Information not available 04/13/2020 Mental Status None recorded. Family History Relationship Description Onset Age of this Age Resolved Age Notes LastModified by Organization Details LastModified Time Father No current problems or disability [email or web address] Not available 11/13 11:07:39 Mother No current problems or disability [email or web address] Not available 11/13 11:07:39 Medical History Condition Response Diabetes Y Arthritis Y Hypertension Y Gynecological HistoryNo gynecological history recorded. Obstetrics History GPAL:G 0 P 0 0 0 0 Past Encounters Encounter ID Performer Location Encounter Start Date Encounter Closed Date Diagnosis/Indication Diagnosis SNOMED-CT Code Diagnosis ICD10 Code Diagnosis Note [id number] Dionte Sandhu MD PAIN OFFICE [address] [place] [address] 11/13/2017 10:28:06 11/20/2017 11:36:27 Neuropathy due to diabetes mellitus 347516951 E11.40 Osteoarthr itis of knee 395737984 M17.0 [id number] Dionte Sandhu MD PAIN OFFICE [address] [place] [address] 08/04/2018 13:42:22 08/09/2018 15:59:16 Osteoarthritis of knee 305178176 M17.0 Neuropathy due to diabetes mellitus 323662532 E11.40 Health Concerns Section Related Observation LastModified by Organization Detai ls LastModified Time None Recorded Concern Status LastModified by Organization Details LastModified Time None Recorded Advance Directives Directive None Recorded Payers Encounter Date Sequence Insurance Name Policy Number Policy Ramos Covered Member ID Ramos Member ID Guarantor Name 11/13/2017 1 [facility] Nica Dawson [id number] Nica Dawson 08/04/2018 1 [facility] Nica Dawson [id number] Nica Dawson Notes Date Note Type Note [...] interferes with her sleep. She has seen [facility] and has osteoarthritis of her left knee and had injections which helped.She is Norwegian speaking and her friend is helping her. Dionte Sandhu MD [address] [facility] [address] [facility] , [facility] [address], [place], [address], [facility] 12/01/2017 08:47:20 08/04/2018 text/html She [...] knee pain . Dionte Sandhu MD [address] , [address], [place], [address], [facility] 08/17/2018 10:41:18 OBGyn Episode No OBEpisode recorded.
== END 2024-12-05 09:09 | disposition home or self-care (01) ==
LOC: HO.HMCC 08:20
PROVIDERS: PCP Internal Medicine; Visit Provider Internal Medicine
DX: I10 Essential (primary) hypertension (principal); E78.5 Hyperlipidemia, unspecified

== ENCOUNTER → 2024-12-05 08:19 | Outpatient (BNVA) | payer MEDICARE, SELFPAY | PROVIDERS: PCP Internal Medicine; Visit Provider Internal Medicine | DX: E11.9 Type 2 diabetes mellitus without complications (principal); I10 Essential (primary) hypertension; E78.5 Hyperlipidemia, unspecified; Z79.4 Long term (current) use of insulin; Z79.85 Long-term (current) use of injectable non-insulin antidiabetic drugs; Z79.899 Other long term (current) drug therapy; Z13.31 Encounter for screening for depression; Z13.30 Encounter for screening examination for mental health and behavioral disorders, unspecified | CPT/HCPCS: 96127; 99212 ==

== ENCOUNTER 2025-03-25 07:32 | Outpatient (REF) | payer MEDICARE, SELFPAY ==
[2025-03-25 11:32] LABS: Alanine Aminotransferase 16 U/L (0-31); Albumin Level 4.5 g/dL (3.5-5.0); Alkaline Phosphatase 73 U/L (39-117); Anion Gap 12 (12-20); Aspartate Amino Transferase 22 U/L (5-31); Blood Urea Nitrogen 16 mg/dL (9-16); Calcium 9.5 mg/dL (8.4-10.2); Carbon Dioxide 27 mmol/L (22-29); Chloride 106 mmol/L (96-108); Cholesterol 153 mg/dL (<200); Estimated Glomerular Filt Rate > 60; HDL Cholesterol 48 mg/dL (>40); Potassium 4.5 mmol/L (3.3-5.1); Sodium 140 mmol/L (135-145); Total Protein 7.3 g/dL (6.5-8.0); Triglycerides 133 mg/dL (<150)
[2025-03-25 11:49] LABS: Total Hemoglobin (HGBA1C) 3647.6095 umol/L
== END 2025-03-25 07:33 | disposition home or self-care (01) ==
LOC: HO.HMGCLDS 07:32
PROVIDERS: PCP Internal Medicine; Visit Provider Internal Medicine
DX: I10 Essential (primary) hypertension (principal); E78.5 Hyperlipidemia, unspecified; Z13.1 Encounter for screening for diabetes mellitus
CPT/HCPCS: 36415; 80053; 80061; 82043; 82570; 83036

== ENCOUNTER 2025-03-28 11:23 | Outpatient (AMB) | payer MEDICARE, SELFPAY ==
--- NOTE | 2025-03-28 12:39 | MHC.PC.OV ---
Vital Signs 03/28/25 12:41 Height 5 ft Weight 193 lb BMI 37.7 BP 112/66 Blood Pressure Location Rt brachial Position Sitting Respiration 18 Pulse 77 Pulse Source Pulse Oximeter Temp 98.2 F Temp Source Oral Pulse Oximetry (%) 96 Oxygen Delivery Method Room Air Intake Visit Reasons: 3 months f/up Allergies No Known Drug Allergies Allergy (Unknown, Verified 12/05/24 08:24) Unknown dust Allergy (Unknown, Uncoded 03/28/25 12:43) Unknown Medication List - Last Reconciled 03/28/25 by MD Clari Perla U-100 Insulin (insulin glargine) 40 units (0.4 mL) subcut DAILY NS blood sugar diagnostic As directed blood sugar diagnostic (Kurani Interactive Verio test strips) check glucose twice a day blood-glucose meter ([employer] Verio Flex Start kit) 1 QD blood-glucose sensor (Panizon G7 Sensor device) TID carvedilol 6.25 mg PO BID irbesartan-hydrochlorothiazide 300-12.5 mg 1 tab PO DAILY lancets ([employer] UltraSoft Lancets) 1 qd metformin 1,000 mg PO BID miscellaneous medical supply 1 ea miscellaneous .QD Mounjaro (tirzepatide) 12.5 mg (0.5 mL) subcut QWEEK NS omeprazole 40 mg PO BID pen needle, diabetic bid pravastatin 20 mg PO DAILY ropinirole 0.5 mg PO BEDTIME Tobacco use date assessed: 03/28/25 Fall risk assessment: No Falls in past year Last assessed Fall Risk: 03/28/25 Dental Screening Dental Screen Date: 12/05/24 HPI 3 months f/up HPI Details Patient presents for the follow-up of insulin-dependent diabetes hypertension hyperlipidemia. She complains of chronic bilateral lower extremities discomfort usually at night improved after getting up from bed and walking. Patient denies claudication lower extremities swelling. PFSH Medical History Bilateral knee pain Lower back pain Abdominal pain Chest pain Hyperlipidemia History of mammogram Diabetic eye exam JACKLYN (obstructive sleep apnea) Obesity HTN (hypertension) IDDM (insulin dependent diabetes mellitus) Surgical History H/O colonoscopy No pertinent past surgical history Family History Father No problems noted. Mother No problems noted. Social History Housing: House Alcohol intake: never Patient Tobacco Use Status: Never used Tobacco e-Cigarette/Vaping Use: Never Used Second Hand Smoke Exposure: No service: No Current occupational status: other Cognitive needs: No Hearing needs: No Vision needs: Yes Questionnaire PHQ-9 Over the last 2 weeks, how often have you been bothered by any of the following problems? 1. Little interest or pleasure in doing things: not at all 2. Feeling down, depressed, or hopeless: not at all 3. Trouble falling or staying asleep, or sleeping too much: not at all 4. Feeling tired or having little energy: not at all 5. Poor appetite or overeating: not at all 6. Feeling bad about yourself - or that you are a failure or have let yourself or your family down: not at all 7. Trouble concentrating on things, such as reading the newspaper or watching television: not at all 8. Moving or speaking so slowly that other people could have noticed. Or the opposite - being so fidgety or restless that you have been moving around a lot more than usual: not at all 9. Thoughts that you would be better off or of hurting yourself in some way: not at all Total score: 0 Depression Screening Interpretation: Negative Depression Screening Done: Yes Source: Developed by Drs. Giles Camara, Yesica Rocha, Leeroy Keith and colleagues, with an educational felicitas from [employer] Thrive Questionnaire Date Thrive assessed: 12/05/24 I am a: Patient What is your living situation today?: I have a steady place to live Within the past 12 months, did the food you bought not last and you didn't have the money to get more?: I choose not to answer this question Within the past 12 months, did you worry whether your food would run out before you got money to buy more?: I choose not to answer this question Do you have trouble paying for medicines?: Yes Do you have trouble getting transportation to medical appointments?: No Do you have trouble paying your heating and electricity bill?: Yes Do you have trouble taking care of your child, family member or friend?: No Do you have trouble with day-to-day activities such as bathing, preparing meals, shopping, managing finances, etc.?: No Are you currently unemployed and looking for a job?: No Are you interested in more education?: No Please select the resources that you would like help with: Paying for medicine Currently or been in a relationship where the following occur: I choose not to answer THRIVE Score: 1 APARNA-7 AMB Questionnaire APARNA-7 Date APARNA - 7 assessed: 12/05/24 Feeling nervous, anxious, or on edge: 0 = Not at all Not being able to stop or control worryin = Not at all Worrying too much about different things: 0 = Not at all Trouble relaxin = Not at all Being so restless that it is hard to sit still: 0 = Not at all Becoming easily annoyed or irritable: 0 = Not at all Feeling afraid as if something awful might happen: 0 = Not at all Total APARNA-7 score (0-4 normal; 5-9 mild; 10-14 moderate; 15-21 severe): 0 Source: Developed by Drs. Giles Camara, Yesica Rocha, Leeroy Keith and colleagues, with an educational felicitas from [employer]. Review of Systems Const All systems reviewed & are unremarkable except as noted in HPI and below Eyes Reports no additional complaints ENT Reports no additional complaints Card Reports no additional complaints Resp Reports no additional complaints GI Reports no additional complaints Reports no additional complaints Physical exam (Primary Care) Vital Signs: Last Vital Signs Temp 98.2 F 03/28/25 12:41 Pulse 77 03/28/25 12:41 Resp 18 03/28/25 12:41 BP 112/66 03/28/25 12:41 Pulse Ox 96 03/28/25 12:41 Oxygen Delivery Method Room Air 03/28/25 12:41 BMI result Body Mass Index 37.7 Tobacco/Smoking Status: Tobacco use Status Tobacco use date assessed 03/28/25 03/28/25 12:44 Patient Tobacco Use Status Never used Tobacco 03/28/25 12:39 e-Cigarette/Vaping Use Never Used 03/28/25 12:39 PHQ-9: PHQ-9 Score PHQ-9: Total score 0 03/28/25 13:33 Depression Screening Interpretation: Negative Thrive Assessment: Date of Thrive Assessment Date Thrive assessed 12/05/24 03/28/25 12:39 Currently or been in a relationship where the following occur: I choose not to answer Const General: no acute distress Resp Effort & Inspection: normal respiratory effort Auscultation: clear to auscultation bilaterally Cardio Rhythm: regular rhythm Heart sounds: S1 normal heart sound present and S2 normal heart sound present GI Inspection: Yes normal to inspection Palpation (GI): Soft to palpation Percussion: Yes normal to percussion Auscultation: normal bowel sounds Extrem General: Yes no clubbing, cyanosis or edema Immunizations pneumoc 20-ranjith conj-dip cr(PF) 0.5 mL IM syringe Performing Provider: Shannon Goins MD Performing Location: [facility] Administered by: PAVAN Senior on 03/28/25 13:33 Dose Route Admin Location Dispensed Lot Number Expiration Date [facility] Contact Worker Lith[employer] 0.5 mL IM Left Deltoid 0.5 mL [id number] 12/26/25 6742-3442-07 Mophie/TriplePulse Total Dispensed Waste 0.5 mL 0 % VIS Given Date VIS Provided VIS Publication Date 03/28/25 Single Vaccine 24 Eligibility Eligibility Date Funding Source Not [facility] Eligible 03/28/25 Private Coding Level of Care Code Est Pt Level 4 (93948) Diagnoses IDDM (insulin dependent diabetes mellitus) HTN (hypertension) I10 Hyperlipidemia E78.5 RLS (restless legs syndrome) G25.81 Assessment & Plan Assessment & Plan (1) IDDM (insulin dependent diabetes mellitus): Comment: A1C < 8 Category: Medical Plan: A1c is 6.4. ADA diet regular physical activity discussed with the patient continue current medications. patient denies hypoglycemia (2) HTN (hypertension): Comment: BP goal <130/80 Code(s): I10 - Essential (primary) hypertension Category: Medical Plan: Continue current medications (3) Hyperlipidemia: Code(s): E78.5 - Hyperlipidemia, unspecified Category: Medical Plan: Continue statin (4) RLS (restless legs syndrome): Code(s): G25.81 - Restless legs syndrome Category: Medical Plan: Check iron profile and try ropinirole, she will follow-up in 3 months with a fasting labs before Orders: Orders Complete Blood Count Auto Diff 3 Months E78.5 - Hyperlipidemia, unspecified, I10 - Essential (primary) hypertension Hemoglobin A1c 3 Months E78.5 - Hyperlipidemia, unspecified, I10 - Essential (primary) hypertension Microalbumin, Random (w Creat) 3 Months E78.5 - Hyperlipidemia, unspecified, I10 - Essential (primary) hypertension IRON PROFILE 3 Months E78.5 - Hyperlipidemia, unspecified, I10 - Essential (primary) hypertension Vitamin D 25-OH Total 3 Months E78.5 - Hyperlipidemia, unspecified, I10 - Essential (primary) hypertension Comprehensive [place]. Panel Fast 3 Months E78.5 - Hyperlipidemia, unspecified, I10 - Essential (primary) hypertension Vitamin B12 and Folate 3 Months E78.5 - Hyperlipidemia, unspecified, I10 - Essential (primary) hypertension Pneumococcal 20 Immunization Today Z23 - Encounter for immunization Medications: New ropinirole administer 1-3 hours before bedtime 0.5 mg PO BEDTIME 30 tabs 2RF Changed From blood-glucose sensor (Dexcom G7 Sensor device) As directed 1 ea 0RF To blood-glucose sensor (Dexcom G7 Sensor device) TID 3 ea 3RF Refilled blood sugar diagnostic (OneTouch Verio test strips) check glucose twice a day 200 ea 3RF blood sugar diagnostic (OneTouch Verio test strips) check glucose twice a day 200 ea 3RF blood-glucose sensor (Dexcom G7 Sensor device) TID 3 ea 3RF blood-glucose meter (OneTouch Verio Flex Start kit) 1 QD 1 ea 0RF
[2025-03-28 12:41] VITALS: BP 112/66; PULSE 77; RESP 18; TEMP 36.8; O2SAT 96; BMI 37.7
== END 2025-03-28 15:03 | disposition home or self-care (01) ==
LOC: HO.HMCC 11:24
PROVIDERS: PCP Internal Medicine; Visit Provider Internal Medicine
DX: I10 Essential (primary) hypertension (principal); E78.5 Hyperlipidemia, unspecified; G25.81 Restless legs syndrome; Z23 Encounter for immunization

== ENCOUNTER → 2025-03-28 11:23 | Outpatient (BNVA) | payer MEDICARE, SELFPAY | PROVIDERS: PCP Internal Medicine; Visit Provider Internal Medicine | DX: E11.9 Type 2 diabetes mellitus without complications (principal); I10 Essential (primary) hypertension; E78.5 Hyperlipidemia, unspecified; G25.81 Restless legs syndrome; Z23 Encounter for immunization; Z79.4 Long term (current) use of insulin | CPT/HCPCS: 90471; 90677; 96127; 99212 ==